=== PATIENT | male | born 1950 | race Caucasian/White ===

== ENCOUNTER 2018-12-15 05:45 | Inpatient (IN) ==
[2018-12-15] MEDS ORDERED: ASPIRIN ONE (05:53)
[2018-12-15] MEDS ORDERED: PULMICORT INH ONE (06:01)
[2018-12-15] MEDS ORDERED: SOLU-MEDROL IV ONE (06:01)
[2018-12-15] MEDS ORDERED: DUONEB (A & A) INH ONE ×2 (06:01→09:06)
--- NOTE | 2018-12-15 06:03 | PROVIDER DOCUMENTATION ---
HPI-Chest Pain - General Chief Complaint: Shortness of Breath Stated Complaint: cp Time Seen by Provider: 12/15/18 05:55 Source: patient Allergies/Adverse Reactions: Patient Allergies Allergy/AdvReac Type Severity Reaction Status Date / Time diclofenac [From Arthrotec] Allergy Unknown Verified 12/15/18 08:24 misoprostol [From Arthrotec] Allergy Unknown Verified 12/15/18 08:24 Penicillins Allergy ANAPHYLAXIS Verified 12/15/18 08:24 Home Medications: Home Medication List Medication Instructions Recorded Confirmed Last Taken Type Fenofibrate 160 mg PO DAILY 12/23/16 12/15/18 12/14/18 07:00 History Fluticasone/Vilanterol [Breo 1 each IH DAILY 12/23/16 12/15/18 12/14/18 07:00 History Ellipta 200-25 Mcg INH] Glimepiride 2 tab PO BID 12/23/16 12/15/18 12/14/18 20:00 History Hydrocodone/Acetaminophen [[place] 1 each PO Q8HR PRN 12/23/16 12/15/18 12/14/18 20:00 History 7.5-325 Tablet] Levothyroxine [Synthroid] 75 microgm PO DAILY 12/23/16 12/15/18 12/14/18 07:00 History Meloxicam 7.5 mg PO BID 12/23/16 12/15/18 12/14/18 20:00 History Metformin [Glucophage] 1 tab PO BID 12/23/16 12/15/18 12/14/18 20:00 History Metoprolol Succinate E.r. [Toprol 1 tab PO BID 12/23/16 12/15/18 12/14/18 20:00 History Xl] PRAVAstatin [Pravachol] 40 mg PO QHS 12/23/16 12/15/18 12/14/18 20:00 History Tamsulosin [Flomax] 0.4 mg PO QHS 12/23/16 12/15/18 12/14/18 20:00 History Tiotropium [place] [Spiriva 4 gm IH PRN PRN 12/23/16 12/15/18 12/14/18 20:00 History Respimat] Valsartan/Hydrochlorothiazide 1 each PO DAILY 12/23/16 12/15/18 12/14/18 08:00 History [Valsartan-Hctz 320-12.5 mg Tab] Flecainide Acetate 50 mg PO BID 12/15/18 12/15/18 12/14/18 20:00 History Verapamil HCl [Verapamil ER] 120 mg PO BID 12/15/18 12/15/18 12/14/18 20:00 History - History of Present Illness-CP Nature of Presenting Problem: Presents to the EC with complaints of chest pain and SOB. Patient states that he has been having SOB for the past 2-3 week. He has been using his labuterol ne bulizers and they used to work but over the last few days his SOB has gotten much worse to where he cannot walk from his bed to the bathroom without getting SOB. He states he quit smoking back in 1991 and does not know if he takes a water pill or has heart failure. He states this morning he started developing tightness in his chest and feeling like he couldnt breath worse so he called 911. He denies a cough or fevers or chills. Location: reports: central Chest Pain Radiation: reports: no radiation Quality of Pain: reports: tightness Severity in ED: moderate Onset/Duration: just prior to arrival Timing: still present Associated Symptoms: reports: shortness of breath Nitro Today/Relief: no nitro taken today Aspirin Treatment Today: no aspirin today, 325 mg x 1, provided by ED Review of Systems - Adult - REVIEW OF SYSTEMS - ADULT Constitutional: reports: no symptoms reported Eyes: reports: no symptoms reported Ears, Nose, Mouth & Throat: reports: no symptoms reported Cardiovascular: reports: see HPI, chest pain Respiratory: reports: see HPI, shortness of breath Gastrointestinal: reports: no symptoms reported Genitourinary: reports: no symptoms reported Musculoskeletal: reports: no symptoms reported Integumentary: reports: no symptoms reported Neurological: reports: no symptoms reported Psychiatric: reports: no symptoms reported Endocrine: reports: no symptoms reported Hematologic/Lymphatic: reports: no symptoms reported Allergic/Immunologic: reports: no symptoms reported All Other Systems: Reviewed and Negative Past History - Adult - PAST MEDICAL HISTORY-ADULT Review of Records: reports: Old Records Reviewed Cardiovascular: reports: A-Fib (possible), HTN Respiratory: reports: asthma Endocrine/Immune: reports: Diabetes, Lymphoma (non-hodgkins), thyroid disorder Other Conditions: reports: other cancer (skin) - PRIOR SURGERIES/PROCEDURES Surgical/Procedure History: reports: cholecystectomy, tonsillectomy, orthopedic (extremity), joint replacement - IMMUNIZATION STATUS Childhood Immunizations: See Nurse Assessment Flu Vaccine: See Nurse Assessment - FAMILY HISTORY Family History: reviewed, not pertinent Physical Exam-General - PHYSICAL EXAM-ADULT Initial Vital Signs Reviewed: Yes - CONSTITUTIONAL General Appearance: alert, mild distress (SOB and tachypneic) - EYES Eyes: PERRL/EOMI - HEAD, EARS, NOSE, MOUTH & THROAT HENMT: normocephalic/atraumatic - NECK Neck: supple, normal inspection - RESPIRATORY Respiratory: chest non-tender, decreased breath sounds (moderate diffusely), wheezing (moderate diffusely) - CARDIOVASCULAR Cardiovascular: normal peripheral pulses, regular rate, rhythm - GASTROINTESTINAL (ABDOMEN) Abdominal Exam: normal bowel sounds, non tender, soft - MUSCULOSKELETAL Back Exam: normal inspection, no CVA tenderness, no vertebral tenderness Extremity: normal range of motion, non-tender - SKIN Integumentary: normal color, warm/dry - NEUROLOGIC Neurologic: grossly normal - PSYCHIATRIC Psych/Mental Status: normal mood/affect, oriented x 3 - HEART Score HEART Score: History: Slightly Suspicious HEART Score: ECG: Significant ST-Deviation HEART Score: Age: > or = 65 Years HEART Score: Risk Factors for Atherosclerotic Disease: > or = 3 Risk Factors or History of Atherosclerotic Disease HEART Score: Troponin: < or = Normal Limit Total HEART Score:: 6 Progress - PLAN OF CARE/RESULTS Progress/Plan/Lab Results: Vital Signs - 8 hr 12/15/18 05:48 12/15/18 06:00 12/15/18 06:20 Temperature 97.9 F Pulse Rate 74 115 H 76 Respiratory Rate 20 25 H 22 Blood Pressure 158/111 149/108 O2 Sat by Pulse Oximetry 96 94 L Laboratory Results - last 24 hr 12/15/18 12/15/18 06:13 06:13 WBC 11.74 H RBC 5.57 Hgb 16.3 Hct 48.5 MCV 87.1 MCH 29.3 MCHC 33.6 RDW Std Deviation 15.1 H Plt Count 219 MPV 10.5 H Neut % (Auto) 74.4 Lymph % (Auto) 12.3 L [place] % (Auto) 9.3 Eos % (Auto) 3.7 Baso % (Auto) 0.3 Neut # (Auto) 8.75 H Lymph # (Auto) 1.44 [place] # (Auto) 1.09 H Eos # (Auto) 0.43 Baso # (Auto) 0.03 PT 13.8 INR 0.98 Orders Category Date Time Status CHEST-PORTABLE [RAD] Stat Exams 12/15/18 06:01 Completed CBC WITH ELECTRONIC DIFF [HEME] Stat Lab 12/15/18 06:13 Completed COMPREHENSIVE METABOLIC PANEL [CHEM] Stat Lab 12/15/18 06:13 Received PRO B-NATRIURETIC PEPTIDE Stat Lab 12/15/18 06:13 Received PROTIME WITH INR [COAG] Stat Lab 12/15/18 06:13 Completed TROPONIN T Stat Lab 12/15/18 06:13 Received Albuterol 2.5MG/Ipratrop 0.5MG [Duoneb (A & A)] Med 12/15/18 06:01 Discontinued 9 ml INH NOW ONE Aspirin Med 12/15/18 05:53 Discontinued 324 mg .ROUTE .STK-MED ONE Budesonide [Pulmicort] Med 12/15/18 06:01 Discontinued 0.5 mg INH NOW ONE Methylprednisolone Sod Succ [Solu-Medrol] Med 12/15/18 06:01 Discontinued 125 mg IV NOW ONE Aerosol Treatments Routine Oth 12/15/18 06:02 Completed Aerosol Treatments Stat Oth 12/15/18 06:02 Completed Result Diagrams: 12/15/18 06:13 12/15/18 06:13 - REASSESSMENT Reassessment #1 Time Reassessed: 08:30 (says feels better, however sats drop to 88% just in act of sitting up. Chest tightness has resolved. Lungas clear with ascultation) Status: improving - EKG 1 Time of EKG reading by physician:: 05:56 EKG Read and Signed by:: Jaymie Marroquin EKG Interpretation (*Must complete 3 of following elements*): Abnormal Rate: 74 Rhythm: NSR [place]: normal QRS: other (Prolonged QTc) ST Wave: non-specific ST changes (ST inversions diffusely) Prior EKG Comparison: changes noted (from 2017) - XRAY 1 XRAY Study: Chest (EXAM: CHEST-PORTABLE HISTORY: COPD TECHNIQUE: Chest single view COMPARISON: 03/10/2017 FINDINGS: The lungs are well expanded. The heart is borderline mildly prominent. The vessels are not distended. There a re no infiltrates. No effusion identified. IMPRESSION: Negative exam. Electronically signed by Cole Villareal 12/15/2018 6:37 AM) Impression: Normal - CONSULTS/PCP/HOSPITALIST Notification #1 *Consult/PCP/Hospitalist*: Robert Time Discussed: 08:35 Consult Disposition: Will see in ED, Admit - CHANGE OF SHIFT REPORT (ED Provider) 1 Report Given and Care Transferred to:: Dr Rubin Time of Transfer: 07:00 Items Pending: Labs, XRAY Results Departure - Departure Date of Disposition Decision: 12/15/18 Time of Disposition Decision: 08:37 DIAGNOSIS: COPD exacerbation, ST segment changes on electrocardiogram, Hypoxia Chest pain Qualifiers: Chest pain type: unspecified Qualified Code(s): R07.9 - Chest pain, unspecified Disposition: ADMITTED INPATIENT 09 Certified Medical Emergency: Emergent Condition: Stable Referrals and Follow-Ups: Jodie Carrion MD [Primary Care Provider] - - Critical Care Note This patient required my direct & personal management of CC.: Yes Total Time (mins): 75 Critical Care Statement: This patient required my direct personal management to treat or rule out processes, the absence of which, could potentiallly result in sudden, clinically significant life or limb threatening deterioration. Attestation - Physician/ ALBERTO Attestation Patient care was provided by Advanced Practice Provider:: No The physician spent face to face time with patient:: Yes Advanced Practice Provider documentation review:: Supervising physician onsite and consulted in the evaluation and care of this patient. The physician did have a face to face encounter with the patient.
[2018-12-15 06:36] LABS: BASO# 0.03 X1000 (0.0-0.2); BASO% 0.3 % (0.0-0.8); EOS# 0.43 X1000 (0.0-0.7); EOS% 3.7 % (0.0-10.0); HEMATOCRIT 48.5 % (42.0-52.0); HEMOGLOBIN 16.3 g/dL (14.0-18.0); LYMPH# 1.44 X1000 (1.2-3.4); LYMPH% 12.3 % (20.5-51.1); MCH 29.3 PG (27-31); MCHC 33.6 g/dL (33-37); MCV 87.1 FL (81-99); MONO# 1.09 X1000 (0.11-0.59); MONO% 9.3 % (1.7-9.3); MPV 10.5 FL (7.4-10.4); NEUT# 8.75 X1000 (1.4-6.5); NEUT% 74.4 % (42.2-75.2); PLT 219 X1000 (130-400); RBC 5.57 XMIL (4.7-6.1); RDW 15.1 % (11.5-14.5); WBC 11.74 X1000 (4.8-10.8)
--- NOTE | 2018-12-15 06:39 | Diag Imaging Result Doc PS360 ---
EXAM: CHEST-PORTABLE HISTORY: COPD TECHNIQUE: Chest single view COMPARISON: 03/10/2017 FINDINGS: The lungs are well expanded. The heart is borderline mildly prominent. The vessels are not distended. There are no infiltrates. No effusion identified. IMPRESSION: Negative exam. Electronically signed by Cole Villareal 12/15/2018 6:37 AM
[2018-12-15 06:46] LABS: INR 0.98; PROTIME 13.8 Seconds (11.0-16.0)
[2018-12-15] MEDS ORDERED: NITROGLYCERIN TOP ONE (06:50)
[2018-12-15 06:57] LABS: AGAP 12; ALB/GLOB RATIO 1.5; ALBUMIN 2.5 g/dL (3.5-5.0); ALKALINE PHOSPHATASE 26 U/L (32-122); BUN 13 mg/dL (8-22); CHLORIDE 117 mmol/L (98-107); COSMO 290; CREATININE 0.5 mg/dL (0.7-1.2); ESTIMATED GFR > 60; GLUCOSE 147 mg/dL (70-104); GOT 10 U/L (10-34); GPT 10 U/L (10-44); SODIUM 144 mmol/L (136-145); TCO2 15 mmol/L (25-35); TOTAL BILIRUBIN 0.35 mg/dL (0.20-1.00); TOTAL PROTEIN 4.2 g/dL (6.3-8.3)
[2018-12-15] MEDS ORDERED: ASPIRIN PO ONE (07:01)
[2018-12-15 07:30] LABS: CALCIUM 9.5 mg/dL (8.8-10.2); POTASSIUM 4.1 mmol/L (3.5-5.1)
[2018-12-15] MEDS ORDERED: LEVAQUIN 500 MG/D5W 500 MG/100 ML IVPB IV SCH (08:45)
[2018-12-15 08:58] LABS: ALLEN TEST YES; BE -2.4 mmoll (-3.0-3.0); BLOOD TYPE ARTERIAL; HCO3-(ACT) 22.8 mmoll (20.0-26.0); METHB 0.7 % (0.0-1.5); MODALITY CANNULA; O2(CT) 20.2 mL/dL (15.0-23.0); O2HB 90.5 % (95.0-99.0); PCO2(98.6) 35 mmHg (35-45); PO2(98.6) 58 mmHg (60-100); SAMPLE BLOOD; SAO2 92.2 % (95.0-100.0); THB 15.9 g/dL (11.5-17.4)
[2018-12-15] MEDS ORDERED: ALBUTEROL NEB INH ONE (09:06)
--- NOTE | 2018-12-15 09:09 | EKG Report ---
Test Performed on : 12/15/2018 05:54:02 AM Test Reason : ED. NO EKG ORDER FOR MUSE Blood Pressure : / mmHG Vent. Rate : 074 BPM Atrial Rate : 074 BPM P-R Int : 184 ms QRS Dur : 108 ms QT Int : 490 ms P-R-T Axes : 066 136 -05 degrees QTc Int : 543 ms Normal sinus rhythm. Right axis deviation T wave abnormality, consider inferior ischemia T wave abnormality, consider anterolateral ischemia Prolonged QT Abnormal ECG When compared with ECG of 10-MAR-2017 08:50, QRS axis shifted right T wave inversion now evident in Inferior leads T wave inversion now evident in Anterolateral leads QT has lengthened Unconfirmed Result
[2018-12-15 09:44] LABS: HEMOGLOBIN A1C 7.2 % (4.8-6.0)
[2018-12-15 09:54] LABS: FREE T4 1.13 ng/dL (0.93-1.70); TSH 2.44 uIUmL (0.27-4.20)
[2018-12-15] MEDS ORDERED: LASIX IV ONE (10:03)
[2018-12-15] MEDS ORDERED: DUONEB (A & A) INH PRN (10:10)
[2018-12-15] MEDS ORDERED: ZOFRAN IV PRN (10:10)
[2018-12-15] MEDS ORDERED: TYLENOL PO PRN (10:10)
[2018-12-15 11:08] LABS: URINE SOURCE CLEAN CATCH
--- NOTE | 2018-12-15 11:14 | EKG Report ---
Test Performed on : 12/15/2018 10:55:43 AM Test Reason : Follow up ST T changes in Ant Lat Inf leads Blood Pressure : / mmHG Vent. Rate : 098 BPM Atrial Rate : 098 BPM P-R Int : 188 ms QRS Dur : 106 ms QT Int : 422 ms P-R-T Axes : 060 148 -01 degrees QTc Int : 538 ms Normal sinus rhythm. Left posterior fascicular block Inferior infarct , age undetermined T wave abnormality, consider anterior ischemia Prolonged QT Abnormal ECG When compared with ECG of 15-DEC-2018 05:54, (Unconfirmed) No significant change was found Confirmed by Sachin Holman MD ([id number]) on 12/15/2018 9:33:23 PM
[2018-12-15] MEDS: XOPENEX NEB INH SCH ×4 (11:16→23:42)
[2018-12-15] MEDS: ATROVENT NEB INH SCH ×4 (11:16→23:42)
[2018-12-15 11:17] LABS: BILIRUBIN URINE NEGATIVE (NEGATIVE); BLOOD URINE NEGATIVE (NEGATIVE); COLOR YELLOW; GLUCOSE URINE NEGATIVE (NEGATIVE); KETONE URINE NEGATIVE (NEGATIVE); LEUKOCYTES URINE MODERATE (NEGATIVE); NITRITE URINE NEGATIVE (NEGATIVE); PROTEIN URINE NEGATIVE (NEGATIVE); SP GRAVITY URINE 1.009; TURBIDITY URINE CLEAR (CLEAR); UROBILINOGEN URINE NORMAL (NORMAL)
[2018-12-15 11:19] LABS: UR EPITHELIAL CELLS <10 /HPF (<10); URINE BACTERIA 4+ /HPF; URINE RBC <10 /HPF (<10)
--- NOTE | 2018-12-15 11:33 | HISTORY AND PHYSICAL ---
ADDENDUM: Addendum to history and physical dictated by the nurse practitioner. I agree with most components of history, physical, assessment, and plan. In brief, Mr. Palacios is a 68-year-old man with past medical history of paroxysmal atrial fibrillation, asthma, COPD syndrome, essential hypertension, noninsulin- dependent diabetes mellitus, diastolic congestive heart failure with normal coronary angiography in 06/2016, non- Hodgkin's lymphoma, who comes in with chief complaint of shortness of breath of about 2 to 3 weeks duration, associated with sharp chest pain. The patient's shortness of breath had started about 3 weeks ago, and his wheezing had increased from his baseline wheezing, and he had contacted his transit coach operator, who had prescribed him Z-Ehsan and Medrol Dosepak as per the history, which he completed yesterday. However, his shortness of breath did not improve, and yesterday he started also experiencing chest pain, and so he decided to come to the hospital. In the emergency room, he was found to be tachycardic, hypertensive, and hypoxic. He was given nebulizer, steroids, and hospitalist team was consulted for further management. At the time of my evaluation, the patient denies any more chest pain. He was already given 325 mg of aspirin. He is still feeling wheezy and short of breath. I discussed with him and his at bedside, his exam findings, and answered all of his questions. The patient denies any cough since the last 2 days, though previously he did have cough with [id number] expectoration. He denies any fevers or chills. PHYSICAL EXAMINATION: VITAL SIGNS: Temperature 97.9 degrees, pulse 76, respiratory rate 25, blood pressure 150/108, saturating 95% on Ventimask. HEENT: He appears plethoric face. Oral cavity is moist. LUNGS: Air entry bilaterally equal. He does have inspiratory crackles in bilateral inframammary region with end-expiratory wheezes. CARDIOVASCULAR: S1, S2 normal. Regular rhythm. No murmur, rub, or gallop. ABDOMEN: Obese, soft, nontender. EXTREMITIES: Mild bilateral lower extremity edema. NEUROLOGIC: He is alert and oriented x3. He does have right hand deformity since , with intact sensation. LABORATORY DATA: Suggestive of mild leukocytosis of 11,000, with eosinophil count of 3.7. He does have normal PT/INR. His ABG is suggestive of hypoxia of 58, hyperchloremia, and low bicarbonate. He does have elevated proBNP and negative first troponin. MICROBIOLOGY: No data. IMAGING: On review of chest x-ray, he does have pulmonary vascular congestion and some cephalization. EKG suggestive of normal sinus rhythm, anterolateral inferior T- wave inversions, and prolonged QTc. ASSESSMENT: 1. Acute hypoxic respiratory failure due to asthma, acute chronic obstructive pulmonary disease syndrome exacerbation. 2. Anterolateral inferior T-wave inversion with atypical chest discomfort and negative coronary angiography in 12/2016, likely in the setting of endocardial ischemia in the setting of hypoxic respiratory failure. 3. Acute chronic obstructive pulmonary disease, asthma exacerbation. 4. Mild acute on chronic diastolic congestive heart failure exacerbation. 5. Paroxysmal atrial fibrillation. 6. Noninsulin-dependent diabetes mellitus. PLAN: 1. Continue oxygenation to maintain saturation more than 94%, albuterol/ipratropium nebulization, intravenous antibiotics, and intravenous steroids. 2. Follow up with EKG and troponins, and follow up BMP. DISPOSITION: I would continue to monitor the patient in [facility]. Plan of care was discussed with the patient and his at bedside. All of their questions have been answered. cc: Desean Jones MD MTDD
[2018-12-15] MEDS: HUMULIN R SUBQ SCH ×3 (11:40→21:49)
--- NOTE | 2018-12-15 12:01 | HISTORY AND PHYSICAL ---
PRIMARY CARE PROVIDER: Dr. Jodie Carrion. INFECTIOUS DISEASE DOCTOR: Dr. Yanick Degroot out of [place]. PRIMARY BUILDING SERVICES COORDINATOR: Dr. Yudith Ruiz out of [facility]. UROLOGIST: Dr. Duggan. CHIEF COMPLAINT: Shortness of breath. HISTORY OF PRESENT ILLNESS: Mr. Ariel Palacios is a 68-year-old male with a medical history of COPD, chronic respiratory failure, paroxysmal atrial fibrillation, diastolic dysfunction, who is now here with complaints of extreme shortness of breath. He states that for at least 3 weeks he has had progressively worsening shortness of breath. He was in touch with Dr. Degroot who prescribed him azithromycin and a Medrol Dosepak which was all completed yesterday. By last night, he was unable to sleep. The shortness of breath was severe to the point of causing him chest discomfort. Despite taking nebulizers, it would not improve and then came to the emergency department here at [facility]. He has been having spells of dizziness and lightheadedness over the last 3 weeks. He has had yellow to white productive thick phlegm and chills. He denies any fever. Denies any other chest pains and is chest pain- free right now. Cardiac enzymes are negative. He has had a clear left heart catheterization in 2017. What is elevated is his proBNP at 4933, which is significantly elevated since 2017 and, in 2017, it was a normal number. He is actively wheezing and short of breath at this time despite having steroids and nebulizers, so we will get him admitted. We will start him on Lasix, steroids, antibiotic, nebulizers, oxygen therapy and monitor him in the [facility]. PAST MEDICAL HISTORY: 1. COPD. 2. Diabetes mellitus type 2 with a hemoglobin A1c of 7.2. He is on oral diabetic medications only. 3. Obstructive sleep apnea which is resolved since he had sinus surgery. No CPAP. 4. Overactive bladder with BPH. 5. Osteoarthritis. 6. Right hand defect. 7. Paroxysmal atrial fibrillation. It happens every 3 to 4 months; the last time was about 2 weeks ago and it never lasts long enough to go to the hospital or see the doctor. He is followed by Dr. Ruiz in [place] for that. 8. Diastolic dysfunction per echocardiogram in 2017 with an ejection fraction of 66% and an elevated pulmonic pressure of 37. The diastolic dysfunction was actually found on the left heart catheterization that was performed in 2017, and it was suspected due to elevated left ventricular end-diastolic pressure. 9. Non-Hodgkin lymphoma on his back that is in remission. 10. History of basal cell skin cancer. 11. Hyperlipidemia. SURGICAL HISTORY: 1. Right inguinal hernia repair. 2. Cholecystectomy. 3. Carpal tunnel release bilaterally. 4. Right knee arthroscopy. 5. Reconstruction of the right hand. 6. Tonsillectomy with polyps and sinus surgery. 7. Right shoulder replacement. 8. Bilateral cataracts. 9. Umbilical hernia repair. 10. Left shoulder skin cancer removed. SOCIAL HISTORY: Quit smoking in 1989, but he had started smoking at the age of 13 and was a 1 pack per day smoker. Very minimal alcohol use. He says 1 case of beer can last him for 3 months. He said the last time he even bought alcohol was about 6 months ago. Denies any illicit drug use. Lives at home with his . FAMILY HISTORY: Mother had diabetes and breast cancer. Had a grandmother and a great grandmother, who also had breast cancer. Had an uncle who had colon cancer. On the father's side, his father started having cardiac complications in his 50s and in uncles and father they all had alcoholism, and 1 uncle had congestive heart failure. ALLERGIES: Penicillin causes anaphylaxis and then Arthrotec causes dysrhythmia. Diclofenac and Misoprostol. HOME MEDICATIONS: 1. Oxybutynin. 2. Mag-Ox. 3. Toprol extended release 200 mg p.o. daily. 4. Flomax 0.4 mg p.o. nightly. 5. Pravachol 40 mg p.o. nightly. 6. Marina once every 8 hours p.r.n. 7. Breo Ellipta 200/25, inhaled daily. 8. Fenofibrate 160 mg p.o. daily. 9. Flecainide acetate 50 mg p.o. twice daily. 10. Glimepiride 2 tabs p.o. twice daily. 11. Metformin 500 mg p.o. twice daily. 12. Mobic 7.5 mg p.o. twice daily. 13. Spiriva 4 g inhaled as needed. 14. Synthroid is listed, but I believe he is not on Synthroid. 15. Valsartan/hydrochlorothiazide once daily. 16. Verapamil extended release 120 mg p.o. twice daily. REVIEW OF SYSTEMS: Fourteen point review of systems are complete or negative, except for those mentioned in above HPI. PHYSICAL EXAMINATION: VITAL SIGNS: Temperature 97.9 degrees, heart rate 76, respiratory rate 25, blood pressure 149/108, O2 saturation was 92% on 4 L nasal cannula. He is 5 feet 10 inches tall, 260 pounds, BMI of 37.3. GENERAL: Mr Ariel Palacios is a 68-year-old male. He is in no acute distress and is able to answer questions appropriately. He is short of breath when he excessively speaks. HEENT: Atraumatic, normocephalic. Pupils equal, round, reactive to light. Extraocular movements intact. Mucous membranes are moist. NECK: Trachea midline. CARDIOVASCULAR: S1, S2. Regular rate and rhythm. No rubs, gallops, murmurs. No lower extremity edema. +2 dorsalis and radial pulses. Difficult to assess for JVD. Negative for carotid bruits. PULMONARY: Expiratory wheezes noted throughout. Mild accessory muscle use. Mild work of breathing. Tolerating 4 L nasal cannula. GI: Soft, nontender, nondistended. Positive bowel sounds x4. EXTREMITIES: Moves all extremities equally. Full range of motion. NEUROLOGIC: A and O x3. Follows commands. Sensory is intact. SKIN: Warm, dry, intact. LABORATORY DATA: White blood cells 11,000, hemoglobin 16, hematocrit 48, platelet count 219. INR 0.98. ABGs: A pH 7.40, pCO2 35, PO2 58, bicarbonate 22, base excess -2, saturation 90%. Lactate 2.1. This was on 2 L nasal cannula. Sodium 144, potassium 4.1, BUN 13, creatinine 0.5, glucose 147. Hemoglobin A1c is 7.2. Calcium 9.5, bilirubin 0.35, AST 10, ALT 10. Troponin less than 0.01. ProBNP 4933. Albumin 2.5, triglycerides 144, total cholesterol 107, HDL 33, LDL 59. TSH 2.44, free T4 is 1.13. IMAGING: Chest x-ray negative exam. EKG normal sinus rhythm, rate 74, QTc 543. ASSESSMENT/PLAN: 1. Chronic obstructive pulmonary disease exacerbation with acute hypoxemic respiratory failure. We will do antibiotic steroids, nebulizers and oxygen therapy. He has complaints of having dizzy lightheadedness spells, so he may need to be evaluated for home oxygen upon discharge. The antibiotic was originally chosen as Levaquin, but then it was noted that he had a QTc of 543. He has an allergy to penicillin as it causes anaphylaxis. So, will look at the antibiotics and decide which one to use for him. 2. Leukocytosis. This could be reactive to the steroid dose pack that he received prior to admission. There were no other signs or symptoms of infection, although he has complained of some chills and yellow phlegm. We will get a sputum culture. 3. Acute congestive heart failure with history of diastolic dysfunction. We will get a recent echocardiogram. His proBNP is elevated over 4000; it has never been abnormal. So we will also start him on Lasix. He has got audible wheezing. Will do 40 of Lasix twice a day. Repeat a chest x-ray tomorrow and a proBNP in the morning. Could be a component of pulmonary hypertension as his last echocardiogram showed a systolic on a pulmonary artery being 37 mmHg. 4. History of paroxysmal atrial fibrillation. Primarily stays in sinus rhythm, but about every 3 to 4 months, has short runs of atrial fibrillation with rapid ventricular response. He feels the palpitations. Will continue his Toprol extended release 200 mg daily. We can add 50 mg oral twice daily, and verapamil extended release 120 mg oral twice daily. 5. Hypertension. Continue his valsartan hydrochlorothiazide and Toprol. 6. Hyperlipidemia. Will continue his Pravachol and his fenofibrate. 7. Diabetes mellitus type 2. Oral diabetic medications only. Will continue the glimepiride, will hold the metformin. We will do sliding scale insulin, diabetic diet, pattern blood glucoses. 8. Arthritis. Continue Mobic and as-needed Marina. 9. He denies history of hypothyroidism. There are no obvious recent prescriptions for Synthroid, but Synthroid is listed under his home medications. I believe this is incorrect. His thyroid stimulating hormone and T4 is normal, so we are going to re-evaluate that. 10. Overactive bladder with questionable benign prostatic benign prostatic hyperplasia. He is followed by Dr. Duggan. He is on oxybutynin, which is going to be held for now. He is on Flomax. Will continue that. 11. History of obstructive sleep apnea, but apparently that is resolved after he had sinus surgeries and polyps removed. Dictated by GARRY Branch for Desean Jones MD cc: GARRY Branch MD Emily M. McClure, MD William McCrory, MD Shi Chi Cheng, MD I agree with most components of history, physical, assessment and plan. A separate addendum has been dictated. ELSA
[2018-12-15] MEDS: DOXYCYCLINE 100 MG in NS 250 ML IV SCH ×2 (12:25→23:26)
[2018-12-15] MEDS: SOLU-MEDROL IV SCH ×3 (13:25→21:57)
[2018-12-15] MEDS: PULMICORT INH SCH (19:50)
[2018-12-15] MEDS: MOBIC PO SCH (20:45)
[2018-12-15] MEDS: TAMBOCOR PO SCH (20:45)
[2018-12-15] MEDS: AMARYL PO SCH (20:45)
[2018-12-15] MEDS: FLOMAX PO SCH (20:45)
[2018-12-15] MEDS: PRAVACHOL PO SCH (20:45)
[2018-12-15] MEDS: ISOPTIN SR PO SCH (20:46)
[2018-12-15] MEDS: LASIX IV SCH (20:46)
--- NOTE | 2018-12-15 23:28 | ECHO REPORT ---
ORDER DATE: 12/15/2018 MEASUREMENTS: Septal thickness 1.1, left ventricular internal diameter in diastole 4.1, posterior wall thickness 1.1, left ventricular internal diameter in systole 2.6, aortic root 2.8, left atrium 3.8. SUMMARY: 1. Fair quality study. 2. Very mild sclerosis of trileaflet aortic valve demonstrated, with normal aortic valve opening evident. Peak gradient across the aortic valve is approximately 16 mmHg. Mitral, tricuspid and pulmonic valves are without evidence of structural abnormality. There is mild tricuspid regurgitation and mild pulmonic insufficiency. The estimated systolic PA pressure by Doppler is 85 mmHg, suggesting severe pulmonary hypertension. The aortic root is grossly normal in size. 3. Normal left ventricular dimension is suggested. Estimated left ventricular ejection fraction appears to be at least 65%. There is septal flattening demonstrated consistent with right ventricular pressure overload. No other wall motion abnormalities are evident. Doppler suggests grade 1 left ventricular diastolic dysfunction. The left atrium is normal in size. Right atrium is mildly enlarged. The right ventricle is mildly to moderately enlarged. Right ventricular systolic function appears to be preserved. 4. No pericardial effusion. 5. Inferior vena cava not well demonstrated. cc: MD Bing Torres CRNP
[2018-12-16] MEDS: XOPENEX NEB INH SCH ×6 (03:46→23:38)
[2018-12-16] MEDS: ATROVENT NEB INH SCH ×6 (03:46→23:38)
[2018-12-16 04:11] LABS: ALLEN TEST YES; BE -0.6 mmoll (-3.0-3.0); BLOOD TYPE ARTERIAL; HCO3-(ACT) 24.4 mmoll (20.0-26.0); O2(CT) 19.9 mL/dL (15.0-23.0); O2HB 95.4 % (95.0-99.0); PCO2(98.6) 43 mmHg (35-45); PO2(98.6) 72 mmHg (60-100); SAMPLE BLOOD; SAO2 97.8 % (95.0-100.0); THB 14.8 g/dL (11.5-17.4); pH(98.6) 7.37 (7.35-7.45)
[2018-12-16 04:12] LABS: MODALITY VENTIMASK
[2018-12-16] MEDS: SOLU-MEDROL IV SCH ×3 (06:15→21:25)
[2018-12-16] MEDS: HUMULIN R SUBQ SCH ×5 (06:15→23:58)
[2018-12-16 06:41] LABS: INR 1.02; PROTIME 14.2 Seconds (11.0-16.0)
[2018-12-16 06:42] LABS: PTT 28.1 Seconds (22.3-41.8)
[2018-12-16] MEDS ORDERED: SYNTHROID PO SCH (07:00)
[2018-12-16] MEDS: PULMICORT INH SCH ×2 (07:50→19:52)
[2018-12-16 08:06] LABS: AGAP 15; ALB/GLOB RATIO 1.3; ALBUMIN 4.1 g/dL (3.5-5.0); ALKALINE PHOSPHATASE 45 U/L (32-122); BUN 28 mg/dL (8-22); CHLORIDE 100 mmol/L (98-107); COSMO 293; CREATININE 1.1 mg/dL (0.7-1.2); ESTIMATED GFR > 60; GLUCOSE 276 mg/dL (70-104); GOT 12 U/L (10-34); GPT 15 U/L (10-44); MAGNESIUM 1.8 mg/dL (1.5-2.7); POTASSIUM 3.9 mmol/L (3.5-5.1); SODIUM 139 mmol/L (136-145); TCO2 24 mmol/L (25-35); TOTAL BILIRUBIN 0.62 mg/dL (0.20-1.00); TOTAL PROTEIN 7.3 g/dL (6.3-8.3)
--- NOTE | 2018-12-16 08:06 | EKG Report ---
Test Performed on : 12/16/2018 06:21:32 AM Test Reason : chest pain Blood Pressure : / mmHG Vent. Rate : 087 BPM Atrial Rate : 087 BPM P-R Int : 176 ms QRS Dur : 110 ms QT Int : 448 ms P-R-T Axes : 076 138 038 degrees QTc Int : 539 ms Normal sinus rhythm. Left posterior fascicular block ST & T wave abnormality, consider inferior ischemia ST & T wave abnormality, consider anterolateral ischemia Prolonged QT Abnormal ECG When compared with ECG of 15-DEC-2018 10:55, Inverted T waves have replaced nonspecific T wave abnormality in Lateral leads Confirmed by Sachin Holman MD ([id number]) on 12/16/2018 6:02:42 PM
[2018-12-16 08:10] LABS: HEMATOCRIT 47.8 % (42.0-52.0); IMM GRAN# 0.04 X1000 (0.0-0.04); IMM GRAN% 0.3 % (0.0-0.5); LYMPH# 0.58 X1000 (1.2-3.4); LYMPH% 4.4 % (20.5-51.1); MCH 28.8 PG (27-31); MCHC 33.5 g/dL (33-37); MONO# 0.92 X1000 (0.11-0.59); MONO% 6.9 % (1.7-9.3); NEUT# 11.79 X1000 (1.4-6.5); NEUT% 88.4 % (42.2-75.2); PLT 219 X1000 (130-400); RBC 5.56 XMIL (4.7-6.1); RDW 14.6 % (11.5-14.5); WBC 13.33 X1000 (4.8-10.8)
[2018-12-16 08:12] LABS: LYMPHS 4 % (21-51); MONO 7 % (1-9); SEGS 89 % (42-75)
[2018-12-16] MEDS ORDERED: LEVAQUIN 750 MG/D5W 750 MG/150 ML IVPB IV SCH (09:00)
[2018-12-16] MEDS: LASIX IV SCH (09:56)
[2018-12-16] MEDS: MOBIC PO SCH ×2 (09:56→21:00)
[2018-12-16] MEDS: TOPROL XL PO SCH (09:56)
[2018-12-16] MEDS: DIOVAN PO SCH (09:57)
[2018-12-16] MEDS: ISOPTIN SR PO SCH ×2 (09:57→20:59)
[2018-12-16] MEDS: TAMBOCOR PO SCH ×2 (09:57→21:00)
[2018-12-16] MEDS: LOVENOX SUBQ SCH (09:57)
[2018-12-16] MEDS: AMARYL PO SCH ×2 (09:58→20:59)
[2018-12-16] MEDS: LOFIBRA PO SCH (09:58)
--- NOTE | 2018-12-16 10:36 | Diag Imaging Result Doc PS360 ---
EXAM: CHEST-2 VIEWS INDICATION: sob TECHNIQUE: 2 views COMPARISON: 12/15/2018 FINDINGS: The lungs are grossly clear. There is no discrete pleural fluid collection or pneumothorax. The right hilum is mildly prominent. However, this is stable. This appears to represent prominent vasculature as there is no corresponding lesion on a prior CT from 2017. Cardiac silhouette is unremarkable. IMPRESSION: No evidence of acute pathology by plain radiograph. Electronically signed by Kade Villanueva 12/16/2018 10:34 AM
--- NOTE | 2018-12-16 10:46 | PROGRESS NOTE ---
DATE: 12/16/2018 INTERVAL HISTORY: Overnight, he was put on BiPAP, but he had a panic attack on BiPAP, and he started pulling out his IV lines and the BiPAP mask, after which he was put on Ventimask, and he did not have any such events after that. In the morning time, he is feeling the same as yesterday. We discussed about exam findings, that he does not have crackles, and I explained to him about need for BiPAP. I answered all of his questions. is also at bedside. OBJECTIVE: Vital Signs: He has been afebrile with temperature of 97.3 degrees, pulse 94, respiratory rate 17, blood pressure 120/65, saturating 94% to 96% on Venturi mask. General: Morbidly obese, not in any acute distress. HEENT: His face has generalized erythema. Oral cavity is moist. Lungs: He has air entry bilaterally equal. No rhonchi or crackles. He does have significant wheezes to bilateral lung knight. Cardiovascular: S1, S2 normal. Regular. No murmur, rub, or gallop. Abdomen: Obese, soft, nontender. Extremities: No lower extremity edema. Neurologic: He is alert and oriented x3. He has a right hand deformity since with intact sensation. Input and output suggests -900 mL so far. IMAGING AND LABORATORY DATA: Labs suggestive of persistent leukocytosis with 0% eosinophil count, suggestive of steroid effect, normal hemoglobin, normal platelet count. PO2 of 72 on Ventimask. He does have elevated BUN and creatinine because of Lasix use. He does have hyperglycemia as well. His EKG was of poor quality. His chest x-ray this morning is still pending. However, the images are available and it looks like his vascular congestion has resolved. There is no new consolidation. ASSESSMENT AND PLAN: 1. Acute hypoxic respiratory failure due to asthma, acute chronic obstructive pulmonary disease exacerbation. Continue levalbuterol/ipratropium nebulization, intravenous doxycycline, and intravenous steroids. He did have anaphylaxis to penicillin before, and his QTc has been prolonged, so I would avoid beta-lactam and levofloxacin. I explained to him about need for bilevel positive airway pressure, and will try to have him wear bilevel positive airway pressure mask as tolerated. 2. Atypical chest pain, likely because of severe hypoxia, now resolved. His electrocardiogram does have anterolateral and inferior T-wave inversions, but troponins have been negative. He had negative coronary angiography in 12/2016. This was likely in the setting of endocardial ischemia. He should have outpatient Cardiology evaluation with whom he has scheduled an appointment later this month. 3. Mild exacerbation of acute on chronic diastolic congestive heart failure, status post intravenous Lasix. Clinical examination has improved. The proBNP remains elevated. I will hold Lasix now. 4. History of paroxysmal atrial fibrillation. Continue his home metoprolol, verapamil, and flecainide. He is not listed to be taking any anticoagulation as per the history given to me by him. 5. Others: Continue pravastatin and fenofibrate for hyperlipidemia; tamsulosin for benign prostatic hypertrophy; glimepiride and insulin for history of diabetes mellitus type 2; valsartan for essential hypertension. 6. Disposition. The patient remains in [facility] for persistent wheezing and hypoxic respiratory failure. Plan of care discussed with him. All of his questions have been answered. I will add deep venous thrombosis prophylaxis. cc: Desean Jones MD
[2018-12-16] MEDS: DOXYCYCLINE 100 MG in NS 250 ML IV SCH ×2 (11:47→23:58)
[2018-12-16] MEDS: FLOMAX PO SCH (20:59)
[2018-12-16] MEDS: PRAVACHOL PO SCH (20:59)
[2018-12-17] MEDS ORDERED: HUMULIN R SUBQ ONE (00:18)
[2018-12-17] MEDS: ATROVENT NEB INH SCH ×6 (03:32→23:30)
[2018-12-17] MEDS: XOPENEX NEB INH SCH ×6 (03:32→23:30)
[2018-12-17] MEDS: SOLU-MEDROL IV SCH ×3 (06:09→21:07)
[2018-12-17] MEDS: HUMULIN R SUBQ SCH ×5 (06:09→23:50)
[2018-12-17 06:21] LABS: AGAP 13; BUN 39 mg/dL (8-22); CALCIUM 9.2 mg/dL (8.8-10.2); CHLORIDE 103 mmol/L (98-107); COSMO 298; CREATININE 1.1 mg/dL (0.7-1.2); ESTIMATED GFR > 60; GLUCOSE 261 mg/dL (70-104); POTASSIUM 4.5 mmol/L (3.5-5.1); SODIUM 140 mmol/L (136-145); TCO2 24 mmol/L (25-35)
[2018-12-17] MEDS: PULMICORT INH SCH ×2 (07:44→19:31)
[2018-12-17] MEDS: MOBIC PO SCH ×2 (08:22→21:07)
[2018-12-17] MEDS: TAMBOCOR PO SCH ×2 (08:22→21:07)
[2018-12-17] MEDS: TOPROL XL PO SCH (08:22)
[2018-12-17] MEDS: AMARYL PO SCH ×2 (08:22→21:07)
[2018-12-17] MEDS: DIOVAN PO SCH (08:22)
[2018-12-17] MEDS: LOFIBRA PO SCH (08:23)
[2018-12-17] MEDS: LOVENOX SUBQ SCH (08:23)
[2018-12-17] MEDS: ISOPTIN SR PO SCH ×2 (08:23→21:06)
[2018-12-17] MEDS ORDERED: LANTUS INSULIN SUBQ SCH (09:00)
--- NOTE | 2018-12-17 09:32 | PROGRESS NOTE ---
DATE: 12/17/2018 SUBJECTIVE: As per the patient, he is feeling better. He is still using a Ventimask. He is still short of breath. 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 He believes also he has sleep apnea, and he had a sleep study a long time ago. Even though he has a history of paroxysmal atrial fibrillation, I do not have any anticoagulation listed, and he showed me the list of his medications and he is not on any at home, so I will start this patient on blood thinner. He does not have a history of GI bleed, brain bleed, or recent surgery. OBJECTIVE: Vital Signs: Temperature 98, pulse 64, respiratory rate 18, blood pressure 114/95, oxygen saturation 99 on a Ventimask. HEENT: Head normocephalic. No trauma. PERRLA. Some erythema on his face. Neck: Supple. I cannot see JVD because of his neck size. Central trachea. Chest: Coarse breath sounds bilaterally. He does have bilateral wheezing, end- expiratory wheezing. Decreased breath sounds globally with prolonged expiratory phase. Cardiovascular: RRR. Abdomen: Soft, obese, slightly distended, positive bowel sounds. Extremities: No edema, no clubbing, no cyanosis. Neurological: The patient is alert and oriented x3. No focal deficit. He has a right hand deformity since . LABORATORY: Sodium 140, potassium 4.5, chloride 103, bicarbonate 24, BUN 39, creatinine 1.1, glucose 261, calcium 9.2. ASSESSMENT AND PLAN: 1. Acute hypoxemic respiratory failure due to chronic obstructive pulmonary disease exacerbation. Continue with breathing treatment. He has been placed on antibiotics, steroids as well, oxygen supplementation. Will continue with same management. He is feeling a little bit better. 2. Atypical chest pain. No chest pain at this moment. Resolved. 3. Chronic obstructive pulmonary disease exacerbation as per number 1. 4. History of paroxysmal atrial fibrillation. I will put this patient on Lovenox twice a day. He is not on any anticoagulation at home. 5. Dyslipidemia. Continue with the same management. 6. Type 2 diabetes. I will add Lantus to his medications. I will monitor this patient closely. He is on steroids as well. His hemoglobin A1c is 7.2. 7. Hypertension. Stable. Continue with same management. 8. Likely sleep apnea. He has not been tolerating the BiPAP much during the night. We will continue with oxygen supplementation. 9. Pulmonary hypertension. Aware. Likely due to a combination of chronic obstructive pulmonary disease and sleep apnea. This is multifactorial. So far, he has a negative balance of 1.9 L. X-ray done yesterday did not show any pulmonary edema. cc: Zachariah Tracy MD
[2018-12-17] MEDS: DOXYCYCLINE 100 MG in NS 250 ML IV SCH (11:44)
[2018-12-17] MEDS: PRAVACHOL PO SCH (21:06)
[2018-12-17] MEDS: FLOMAX PO SCH (21:07)
[2018-12-18] MEDS: DOXYCYCLINE 100 MG in NS 250 ML IV SCH ×2 (00:08→12:10)
[2018-12-18] MEDS: NORCO-7.5 PO PRN (02:04)
[2018-12-18] MEDS: XOPENEX NEB INH SCH ×6 (03:39→22:56)
[2018-12-18] MEDS: ATROVENT NEB INH SCH ×6 (03:39→22:56)
[2018-12-18 05:21] LABS: BLOOD TYPE ARTERIAL; SAMPLE BLOOD
[2018-12-18 05:22] LABS: ALLEN TEST YES; HCO3-(ACT) 24.9 mmoll (20.0-26.0); METHB 1.1 % (0.0-1.5); MODALITY VENTIMASK; O2(CT) 20.8 mL/dL (15.0-23.0); O2HB 96.6 % (95.0-99.0); PCO2(98.6) 51 mmHg (35-45); PO2(98.6) 129 mmHg (60-100); SAO2 98.4 % (95.0-100.0); THB 15.2 g/dL (11.5-17.4); pH(98.6) 7.33 (7.35-7.45)
[2018-12-18 05:54] LABS: HEMATOCRIT 45.5 % (42.0-52.0); HEMOGLOBIN 14.8 g/dL (14.0-18.0); IMM GRAN# 0.02 X1000 (0.0-0.04); IMM GRAN% 0.2 % (0.0-0.5); LYMPH# 0.54 X1000 (1.2-3.4); LYMPH% 4.2 % (20.5-51.1); MCH 28.8 PG (27-31); MCHC 32.5 g/dL (33-37); MCV 88.7 FL (81-99); MONO# 1.07 X1000 (0.11-0.59); MONO% 8.3 % (1.7-9.3); MPV 10.9 FL (7.4-10.4); NEUT# 11.25 X1000 (1.4-6.5); NEUT% 87.3 % (42.2-75.2); PLT 217 X1000 (130-400); RBC 5.13 XMIL (4.7-6.1); RDW 14.6 % (11.5-14.5); WBC 12.88 X1000 (4.8-10.8)
[2018-12-18] MEDS: HUMULIN R SUBQ SCH ×4 (06:00→22:15)
[2018-12-18] MEDS: SOLU-MEDROL IV SCH ×3 (06:00→21:17)
[2018-12-18 06:19] LABS: AGAP 10; ALB/GLOB RATIO 1.3; ALBUMIN 3.4 g/dL (3.5-5.0); ALKALINE PHOSPHATASE 37 U/L (32-122); BUN 32 mg/dL (8-22); CALCIUM 8.9 mg/dL (8.8-10.2); CHLORIDE 105 mmol/L (98-107); COSMO 296; ESTIMATED GFR > 60; GLUCOSE 267 mg/dL (70-104); GOT 11 U/L (10-34); GPT 16 U/L (10-44); SODIUM 140 mmol/L (136-145); TCO2 25 mmol/L (25-35); TOTAL BILIRUBIN 0.31 mg/dL (0.20-1.00); TOTAL PROTEIN 6.1 g/dL (6.3-8.3)
--- NOTE | 2018-12-18 07:03 | Diag Imaging Result Doc PS360 ---
EXAM: CHEST-PORTABLE 12/18/2018 HISTORY: dyspnea TECHNIQUE: AP portable at 0555 COMMENT: There is cardiomegaly and increased pulmonary vascularity. The inspiration is less optimal than on 12/16/2018. IMPRESSION: Poor inspiration. Stable chest. Electronically signed by jL Goddard 12/18/2018 7:01 AM
[2018-12-18] MEDS: PULMICORT INH SCH ×2 (07:39→19:42)
[2018-12-18] MEDS: LOFIBRA PO SCH (09:15)
[2018-12-18] MEDS: DIOVAN PO SCH (09:15)
[2018-12-18] MEDS: MOBIC PO SCH ×2 (09:15→21:17)
[2018-12-18] MEDS: AMARYL PO SCH ×2 (09:15→21:17)
[2018-12-18] MEDS: TOPROL XL PO SCH (09:15)
[2018-12-18] MEDS: TAMBOCOR PO SCH ×2 (09:16→22:14)
[2018-12-18] MEDS: ISOPTIN SR PO SCH ×2 (09:16→21:17)
[2018-12-18] MEDS: LANTUS INSULIN SUBQ SCH (09:17)
--- NOTE | 2018-12-18 09:21 | PROGRESS NOTE ---
DATE: 12/18/2018 SUBJECTIVE: As per the patient, he had a good night, he tolerated better the CPAP machine. At this moment, he is on a nasal cannula. He is still complaining of some shortness of breath, but compared with admission he feels much better. All their questions were answered. I will transfer this patient to the floor. OBJECTIVE: Vital Signs: Temperature 98.1 degrees, pulse 67, respiratory rate 16, blood pressure 136/92, oxygen saturation 93 on nasal cannula 6 L. HEENT: Head normocephalic, no trauma. PERRLA. Neck: Supple. I cannot see JVD because of her neck size. Central trachea. Chest: Coarse breath sounds bilaterally. He does have bilateral end-expiratory wheezing, which is faint. Decreased breath sounds globally with prolonged expiratory phase, but better compared with yesterday. Cardiovascular: RRR. Abdomen: Soft, obese, slightly distended. Positive bowel sounds. Extremities: No edema, no clubbing, no cyanosis. He does have a right hand deformity since . Neurological examination: The patient is alert and oriented x3. No focal deficits. LABORATORY: WBC 12.8, hemoglobin 14.8, hematocrit 45.5, platelets 217. Sodium 140, potassium 5, chloride 105, bicarbonate 25. BUN 32, creatinine 1, glucose 267, calcium 8.9. AST 11, ALT 16, alkaline phosphatase 37, albumin 3.4. ASSESSMENT AND PLAN: 1. Acute hypoxemic respiratory failure due to chronic obstructive pulmonary disease exacerbation. Continue with breathing treatment. He has been placed on antibiotics, steroids, oxygen supplementation. We will continue with same management. He is feeling much better. 2. Atypical chest pain. No chest pain at this moment. Resolved. 3. Chronic obstructive pulmonary disease exacerbation, as per #1. 4. History of paroxysmal atrial fibrillation. I have placed this patient on Lovenox twice a day. 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 5. Dyslipidemia. Continue with same management. 6. Type 2 diabetes. I have increased the dose of Lantus today. His hemoglobin A1c 7.2. The high blood sugar is likely due to steroids. 7. Hypertension, stable. Continue with same management. 8. Likely sleep apnea. It looks like he was evaluated before for this problem, but a long time ago. He will need to follow up as an outpatient with that. 9. Pulmonary hypertension, aware. Likely due to a combination of chronic obstructive pulmonary disease, sleep apnea. This is multifactorial. So far we have a negative balance of 2.9 liters. We will monitor. cc: Zachariah Tracy MD
[2018-12-18] MEDS: LOVENOX SUBQ SCH ×2 (09:37→21:17)
[2018-12-18] MEDS: FLOMAX PO SCH (21:17)
[2018-12-18] MEDS: PRAVACHOL PO SCH (21:17)
[2018-12-19] MEDS: DOXYCYCLINE 100 MG in NS 250 ML IV SCH ×3 (00:20→23:35)
[2018-12-19] MEDS: NORCO-7.5 PO PRN (00:23)
[2018-12-19] MEDS: ATROVENT NEB INH SCH ×6 (03:25→23:22)
[2018-12-19] MEDS: XOPENEX NEB INH SCH ×6 (03:25→23:22)
[2018-12-19 06:42] LABS: HEMATOCRIT 44.4 % (42.0-52.0); HEMOGLOBIN 14.5 g/dL (14.0-18.0); IMM GRAN# 0.02 X1000 (0.0-0.04); IMM GRAN% 0.2 % (0.0-0.5); LYMPH# 0.44 X1000 (1.2-3.4); LYMPH% 4.7 % (20.5-51.1); MCH 28.8 PG (27-31); MCHC 32.7 g/dL (33-37); MCV 88.1 FL (81-99); MONO# 0.67 X1000 (0.11-0.59); MONO% 7.2 % (1.7-9.3); MPV 10.8 FL (7.4-10.4); NEUT# 8.22 X1000 (1.4-6.5); NEUT% 87.9 % (42.2-75.2); PLT 199 X1000 (130-400); RBC 5.04 XMIL (4.7-6.1); RDW 14.3 % (11.5-14.5); WBC 9.35 X1000 (4.8-10.8)
[2018-12-19] MEDS: SOLU-MEDROL IV SCH ×3 (06:50→21:18)
[2018-12-19] MEDS: HUMULIN R SUBQ SCH ×4 (06:50→21:16)
[2018-12-19 06:59] LABS: AGAP 8; BUN 26 mg/dL (8-22); CALCIUM 8.7 mg/dL (8.8-10.2); CHLORIDE 102 mmol/L (98-107); COSMO 290; CREATININE 0.8 mg/dL (0.7-1.2); ESTIMATED GFR > 60; GLUCOSE 273 mg/dL (70-104); POTASSIUM 4.6 mmol/L (3.5-5.1); SODIUM 138 mmol/L (136-145); TCO2 28 mmol/L (25-35)
[2018-12-19] MEDS: PULMICORT INH SCH ×2 (07:36→19:28)
[2018-12-19 08:16] LABS: BANDS 2 % (0-1); LYMPHS 6 % (21-51); MONO 10 % (1-9); SEGS 80 % (42-75)
[2018-12-19] MEDS: LANTUS INSULIN SUBQ SCH (08:34)
[2018-12-19] MEDS: MOBIC PO SCH ×2 (08:35→21:17)
[2018-12-19] MEDS: LOVENOX SUBQ SCH ×2 (08:35→21:19)
[2018-12-19] MEDS: TOPROL XL PO SCH (08:36)
[2018-12-19] MEDS: LOFIBRA PO SCH (08:36)
[2018-12-19] MEDS: TAMBOCOR PO SCH ×2 (08:36→21:17)
[2018-12-19] MEDS: DIOVAN PO SCH (08:37)
[2018-12-19] MEDS: AMARYL PO SCH ×2 (08:37→21:17)
[2018-12-19] MEDS: ISOPTIN SR PO SCH ×2 (08:37→21:23)
--- NOTE | 2018-12-19 14:25 | PROGRESS NOTE ---
DATE: 12/19/2018 SUBJECTIVE: This patient had a good night. He still complains of shortness of breath but compared with admission and yesterday it is better. Hopefully, he can be discharged in the next 48 hours. Hopefully, tomorrow we will stop the IV steroids and I will put him on p.o. steroids. He is still wheezing a little bit. OBJECTIVE: Vital Signs: Temperature 97.7, pulse 66, respiratory rate 26, blood pressure 179/74, oxygen saturation 99% on 3 L of nasal cannula. HEENT: Head is normocephalic. No trauma. PERRLA. Neck: Supple. No JVD. Central trachea. Chest: Coarse breath sounds bilaterally with some bilateral end-expiratory wheezing, faint. Decreased breath sounds globally with prolonged expiratory phase. Cardiovascular: RRR. Abdomen: Soft and slightly distended. Positive bowel sounds. Protuberant. Extremities: No edema. No clubbing. No cyanosis. He does have a right hand deformity since . Neurological: The patient is alert and oriented times 3. No focal deficit. LABORATORY: WBC is 9.3, hemoglobin 14.5, hematocrit 44.4, and platelets 199. Sodium is 138, potassium 4.6, chloride 102, bicarbonate 28, BUN 26, creatinine 0.8, glucose 273, and calcium 8.7. ASSESSMENT AND PLAN: 1. Acute hypoxemic respiratory failure due to chronic obstructive pulmonary disease exacerbation. Continue breathing treatments. He has been placed on antibiotics, steroids, and oxygen supplementation. We will continue with the same management. He is feeling better. 2. Atypical chest pain. No chest pain at this moment. Resolved. 3. Chronic obstructive pulmonary disease exacerbation. As per #1. 4. History of paroxysmal atrial fibrillation. I have put this patient on Lovenox twice a day. He is not on any anticoagulation at home. He follows with a drapery worker at [facility]. 5. Dyslipidemia. Continue with the same management. 6. Type 2 diabetes. I will continue with the same management. Hemoglobin A1c is 7.2. His blood sugar is elevated likely due to steroids which I will decrease tomorrow. 7. Hypertension. We will continue to monitor. 8. Sleep apnea. He will need to be reevaluated again for the same problem. 9. Pulmonary hypertension. Aware. Likely a combination of chronic obstructive pulmonary disease and sleep apnea. This is multifactorial. So far we will continue with the same management. cc: Zachariah Tracy MD
[2018-12-19] MEDS: PRAVACHOL PO SCH (21:17)
[2018-12-19] MEDS: FLOMAX PO SCH (21:18)
[2018-12-20] MEDS: XOPENEX NEB INH SCH ×6 (03:26→23:25)
[2018-12-20] MEDS: ATROVENT NEB INH SCH ×6 (03:26→23:25)
[2018-12-20] MEDS: HUMULIN R SUBQ SCH ×4 (06:48→21:27)
[2018-12-20 06:49] LABS: AGAP 9; BUN 22 mg/dL (8-22); CALCIUM 9.5 mg/dL (8.8-10.2); CHLORIDE 102 mmol/L (98-107); COSMO 293; CREATININE 0.8 mg/dL (0.7-1.2); ESTIMATED GFR > 60; GLUCOSE 243 mg/dL (70-104); POTASSIUM 4.5 mmol/L (3.5-5.1); SODIUM 141 mmol/L (136-145); TCO2 30 mmol/L (25-35)
[2018-12-20] MEDS: SOLU-MEDROL IV SCH (06:49)
[2018-12-20] MEDS: PULMICORT INH SCH ×2 (07:48→19:24)
[2018-12-20] MEDS: LANTUS INSULIN SUBQ SCH (08:04)
[2018-12-20] MEDS: LOVENOX SUBQ SCH (08:04)
[2018-12-20] MEDS: TOPROL XL PO SCH (08:05)
[2018-12-20] MEDS: ISOPTIN SR PO SCH ×2 (08:05→21:27)
[2018-12-20] MEDS: TAMBOCOR PO SCH ×2 (08:05→21:28)
[2018-12-20] MEDS: DIOVAN PO SCH (08:05)
[2018-12-20] MEDS: AMARYL PO SCH ×2 (08:06→21:28)
[2018-12-20] MEDS: LOFIBRA PO SCH (08:06)
[2018-12-20] MEDS: MOBIC PO SCH ×2 (08:06→21:28)
--- NOTE | 2018-12-20 12:39 | PROGRESS NOTE ---
DATE: 12/20/2018 SUBJECTIVE: This patient is feeling better today. He is still complaining of mild shortness of breath. No wheezing so I will decrease the dose of the IV steroids and hopefully tomorrow will switch it to p.o. I will request also home O2 evaluation tomorrow morning to see if he needs oxygen to go home with. OBJECTIVE: Vital Signs: Temperature 97.7 degrees, pulse 65, respiratory rate 20, blood pressure 165/79, oxygen saturation 95% on 3 L of nasal cannula. HEENT: Head normocephalic, no trauma, PERRLA. Neck: Supple. No JVD. No masses. Central trachea. Chest: Decreased breath sounds bilaterally with prolonged expiratory phase. Some crepitus at the bases. Abdomen: Soft, nontender, nondistended. No hepatosplenomegaly. Extremities: No edema, no clubbing, no cyanosis. He does have right-sided hand deformity since . Neurological: The patient is alert and oriented x3. No focal deficits. LABORATORY: Sodium 141, potassium 4.5, chloride 102, bicarbonate 30, BUN 22, creatinine 0.8, glucose 243, calcium 9.5. ASSESSMENT AND PLAN: 1. Acute hypoxemic respiratory failure due to COPD exacerbation, continue breathing treatment. He has been placed on antibiotics. I will decrease the dose of the steroids. Continue with oxygen supplementation, we will continue with this management. He is feeling better. 2. Atypical chest pain, resolved. 3. COPD exacerbation as per #1. 4. History of paroxysmal atrial fibrillation. I have placed this patient on Lovenox twice a day. He is not on any anticoagulation at home. 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 I will stop the Lovenox and I will start this patient on Eliquis. 5. Type 2 diabetes. Hemoglobin A1c 7.2. His blood sugar is elevated likely due to steroids which I have decreased today. 6. Hypertension. Continue to monitor. 7. Sleep apnea. He will need to be re-evaluated again for this problem as an outpatient. 8. Pulmonary hypertension, aware, likely a combination of COPD, sleep apnea. This is likely multifactorial. cc: Zachariah Tracy MD
[2018-12-20] MEDS: DOXYCYCLINE 100 MG in NS 250 ML IV SCH ×2 (12:51→21:37)
[2018-12-20] MEDS: ELIQUIS PO SCH (21:28)
[2018-12-20] MEDS: PRAVACHOL PO SCH (21:28)
[2018-12-20] MEDS: FLOMAX PO SCH (21:28)
[2018-12-21] MEDS: ATROVENT NEB INH SCH ×3 (03:25→11:47)
[2018-12-21] MEDS: XOPENEX NEB INH SCH ×3 (03:25→11:47)
[2018-12-21] MEDS: HUMULIN R SUBQ SCH (06:47)
[2018-12-21 07:15] LABS: AGAP 9; BUN 22 mg/dL (8-22); CALCIUM 8.6 mg/dL (8.8-10.2); CHLORIDE 104 mmol/L (98-107); COSMO 289; CREATININE 0.7 mg/dL (0.7-1.2); GLUCOSE 108 mg/dL (70-104); POTASSIUM 4.1 mmol/L (3.5-5.1); SODIUM 143 mmol/L (136-145); TCO2 30 mmol/L (25-35)
[2018-12-21] MEDS: PULMICORT INH SCH (07:48)
[2018-12-21] MEDS: AMARYL PO SCH (08:41)
[2018-12-21] MEDS: DIOVAN PO SCH (08:41)
[2018-12-21] MEDS: ELIQUIS PO SCH (08:41)
[2018-12-21] MEDS: TAMBOCOR PO SCH (08:41)
[2018-12-21] MEDS: MOBIC PO SCH (08:42)
[2018-12-21] MEDS: TOPROL XL PO SCH (08:42)
[2018-12-21] MEDS: ISOPTIN SR PO SCH (08:42)
[2018-12-21] MEDS ORDERED: SOLU-MEDROL IV SCH (09:00)
[2018-12-21] MEDS: LOFIBRA PO SCH (09:32)
[2018-12-21] MEDS: LANTUS INSULIN SUBQ SCH (09:36)
[2018-12-21 11:24] VITALS: BP 133/79
--- NOTE | 2018-12-22 06:38 | DISCHARGE SUMMARY ---
ADMISSION DATE: 12/15/2018 DISCHARGE DATE: 12/21/2018 DISCHARGE DIAGNOSES: 1. Acute hypoxemic respiratory failure due to chronic obstructive pulmonary disease exacerbation. 2. Atypical chest pain resolved. 3. Chronic obstructive pulmonary disease exacerbation. 4. History of paroxysmal atrial fibrillation. 5. Type 2 diabetes, hemoglobin A1c 7.2. 6. Hypertension. 7. Sleep apnea. 8. Pulmonary hypertension. PROCEDURES PERFORMED: 1. Chest x-ray dated 12/15/2018. Impression: Negative exam. 2. Echocardiogram dated 12/20/2018. Impression: Ejection fraction 65%. There is a septal flattening demonstrated consistent with right ventricular pressure overload. Doppler suggests grade 1 left ventricular diastolic dysfunction. The right atrium is a little bit enlarged. The right ventricle is mildly to moderately enlarged, but the right ventricular systolic function appears to be preserved, very mild sclerosis of 3 leaflet aortic valve demonstrated. The estimated systolic PA pressure by Doppler is 85 mmHg suggesting severe pulmonary hypertension. 3. Chest x-ray dated 12/16/2018. Impression: No evidence of acute pathology. 4. Chest x-ray dated 12/18/2018. Impression: Poor inspiration, stable chest. HOSPITAL COURSE: A 68-year-old male with a past medical history of COPD, chronic respiratory failure, paroxysmal atrial fibrillation, diastolic dysfunction who presented to the emergency department, and was admitted on 12/15/2018 due to severe shortness of breath. He states that for the last 3 weeks he was progressively getting short of breath and has been worsening on a daily basis. He called his doctor, Dr. Degroot who prescribed him azithromycin and a Medrol Dosepak. Apparently, that was all completed the day before admission but he was unable to sleep because of the shortness of breath and that was causing some chest discomfort. He has been having also some dizziness and lightheadedness for the past 3 weeks. He has had yellow sputum which is thick and some chills. He denied fever. Cardiac enzymes were negative. He has had a clear left heart catheterization in 2017. He had an elevated proBNP at almost 5000. He was actively wheezing and short of breath. He was admitted and he was placed on Lasix, steroids and antibiotics, breathing treatments, and oxygen supplementation. He was monitored in the [facility] unit, and getting all of this treatment altogether. Echocardiogram showed an elevated pulmonary arterial pressure suggesting pulmonary hypertension. Also, this patient likely has sleep apnea. I believe he has been evaluated before by a sleep doctor, and he was diagnosed with sleep apnea at that time, but he is not using a CPAP machine at home. He has a history of paroxysmal atrial fibrillation and even though his CHADS2-VASc score is 2 or more, he is not on anticoagulation but he was placed on blood thinners during this hospitalization. I told the patient to monitor this with his primary care doctor and guest experience representative. The patient has been getting better on a daily basis. He will be discharged today. We measured his oxygen saturation at rest, and also walking, and he dropped to 87 when he was doing physical activity. He has been discharged with oxygen. He will follow up with his knitting machine mechanic in 1 week and also guest experience representative in 1 week. He needs to discuss anticoagulation like I mentioned before. Also, follow up with his primary care doctor. He will need to call for an appointment. At the moment of discharge, this patient was in a stable medical condition tolerating p.o. and ambulating. His is at the bedside as well. DISCHARGE EXAMINATION: Vital Signs: Temperature 97.9 degrees, pulse 66, respiratory rate 16, blood pressure 133/79, and oxygen saturation 95 percent on 2 L of nasal cannula. HEENT: Head normocephalic. No trauma. PERRLA. Neck: Supple. No JVD. No masses. Central trachea. Chest: Decreased breath sounds bilaterally with prolonged expiratory phase. No wheezing today. Abdomen: Soft, nontender, and nondistended. No hepatosplenomegaly. Extremities: No edema, no clubbing, no cyanosis. He has a right-sided hand deformity since . Neurologic: The patient is alert and oriented x3. No focal deficits. LABORATORY: Sodium 143, potassium 4.1, chloride 104, bicarbonate 30, BUN 22, creatinine 0.7, glucose 108, and calcium 8.6. DISCHARGE MEDICATIONS: 1. Acetaminophen 650 mg p.o. q.6 hours as needed. 2. Albuterol sulfate inhaler 2 puff inhaler q.6 hours as needed for shortness of breath. 3. Eliquis 5 mg p.o. b.i.d. 4. Doxycycline 100 mg p.o. b.i.d. 5. Fenofibrate 160 mg p.o. daily. 6. Flecainide acetate 50 mg p.o. b.i.d. 7. Fluticasone/Breo Ellipta 200/25 mcg inhaler 1 inhalation daily, 8. [*] 2 tablets p.o. b.i.d. 9. Chancellor 7.5 one tablet p.o. q.8 hours as needed for pain. 10. Levothyroxine 75 mcg p.o. daily. 11. Meloxicam 7.5 mg p.o. b.i.d. 12. Metformin 1 tablet p.o. b.i.d. 13. Medrol Dosepak as directed 1 package. 14. Metoprolol succinate 1 tablet p.o. b.i.d. 100 mg. 15. Pravastatin 40 mg p.o. at bedtime. 16. Tamsulosin 0.4 mg p.o. at bedtime. 17. Spiriva Respimat 4 g inhaled as needed. 18. Valsartan hydrochlorothiazide 1 tablet p.o. daily 320/12.5 mg tablet. 19. Verapamil ER 120 mg p.o. b.i.d. TIME SPENT: 35 minutes. cc: Zachariah Tracy MD
== END 2018-12-21 14:27 | disposition home or self-care (01) | DRG 189 ==
LOC: SUPCPDRO → ED 05:45 → SUATTDRO 10:28 → EDIPHOLD 10:28 → 3S 12:16 → 4N 12-18 17:17
PROVIDERS: ATTEND Internal Medicine
CPT/HCPCS: 71010; 71020; 71045; 71046; 80048; 80053; 80061; 81001; 82550; 82805; 82948; 83036; 83605; 83721; 83735; 83880; 84439; 84443; 84484; 85025; 85610; 85730; 87040; 87070; 87077; 87088; 87186; 87205; 93005; 93010; 93306; 94640; 94660; 94760; 94761; 94799; 96365; 96367; 96375; 99285; A9270; J1650; J1815; J1940; J1956; J2920; J2930; J7050; XXXXX

== ENCOUNTER 2019-03-07 13:24 | Observation (INO) ==
[2019-03-07] MEDS ORDERED: DUONEB (A & A) INH ONE (14:01)
--- NOTE | 2019-03-07 14:11 | ED EKG INTERP ---
This chart was entered by Maria De Jesus Garcia Scribe, acting as scribe for Ben Altamirano MD. EKG Interpretation - EKG Time of EKG reading by physician:: 13:36 EKG Read and Signed by:: Ben Altamirano EKG Interpretation (*Must complete 3 of following elements*): Abnormal Rate: 85 Rhythm: NSR [place]: normal QRS: other (possible inferior infarct) HI Interval: normal ST Wave: normal Attestation - Physician/ ALBERTO Attestation Patient care was provided by Advanced Practice Provider:: No The physician spent face to face time with patient:: Yes Advanced Practice Provider documentation review:: Supervising physician onsite and consulted in the evaluation and care of this patient. The physician did have a face to face encounter with the patient. This chart was documented by the indicated scribe, (Maria De Jesus Garcia Scribe) and accurately reflects the services I performed and decisions made by me, Ben Altamirano MD, as attested by the provider's signature.
[2019-03-07 14:15] LABS: BASO# 0.01 X1000 (0.0-0.2); BASO% 0.2 % (0.0-0.8); EOS# 0.04 X1000 (0.0-0.7); EOS% 0.9 % (0.0-10.0); HEMATOCRIT 44.2 % (42.0-52.0); HEMOGLOBIN 14.9 g/dL (14.0-18.0); LYMPH# 0.44 X1000 (1.2-3.4); LYMPH% 9.6 % (20.5-51.1); MCH 29.2 PG (27-31); MCHC 33.7 g/dL (33-37); MCV 86.7 FL (81-99); MONO# 0.65 X1000 (0.11-0.59); MONO% 14.3 % (1.7-9.3); MPV 10.5 FL (7.4-10.4); NEUT# 3.42 X1000 (1.4-6.5); PLT 198 X1000 (130-400); RDW 14.5 % (11.5-14.5); WBC 4.56 X1000 (4.8-10.8)
--- NOTE | 2019-03-07 14:19 | PROVIDER DOCUMENTATION ---
HPI-General Adult - General Chief Complaint: Shortness of Breath Stated Complaint: SOB PAIN NEAR RIGHT SHOULDER VERY WEAK Time Seen by Provider: 03/07/19 14:00 Source: patient, family Allergies/Adverse Reactions: Patient Allergies Allergy/AdvReac Type Severity Reaction Status Date / Time diclofenac [From Arthrotec] Allergy Unknown Verified 03/05/19 17:26 misoprostol [From Arthrotec] Allergy Unknown Verified 03/05/19 17:26 Penicillins Allergy ANAPHYLAXIS Verified 03/05/19 17:26 Home Medications: Home Medication List Medication Instructions Recorded Confirmed Last Taken Type Fenofibrate 160 mg PO DAILY 12/23/16 03/07/19 12/14/18 07:00 History Fluticasone/Vilanterol [Breo 1 each IH DAILY 12/23/16 03/07/19 12/14/18 07:00 History Ellipta 200-25 Mcg INH] Glimepiride 2 tab PO BID 12/23/16 03/07/19 12/14/18 20:00 History Levothyroxine [Synthroid] 75 microgm PO DAILY 12/23/16 03/07/19 12/14/18 07:00 History Metoprolol Succinate E.r. [Toprol 1 tab PO BID 12/23/16 03/07/19 12/14/18 20:00 History Xl] PRAVAstatin [Pravachol] 40 mg PO QHS 12/23/16 03/07/19 12/14/18 20:00 History Tiotropium [place] [Spiriva 4 gm IH PRN PRN 12/23/16 03/07/19 12/14/18 20:00 History Respimat] Flecainide Acetate 50 mg PO BID 12/15/18 03/07/19 12/14/18 20:00 History Verapamil HCl [Verapamil ER] 120 mg PO BID 12/15/18 03/07/19 12/14/18 20:00 History Acetaminophen [Tylenol] 650 mg PO Q6H PRN PRN tab 12/21/18 03/07/19 Unknown Rx Albuterol Sulfate Inhaler 2 puff INH Q6H PRN PRN #1 inhaler 12/21/18 03/07/19 Unknown Rx [Ventolin Hfa] Apixaban [Eliquis] 5 mg PO BID #60 tab 12/21/18 03/07/19 Unknown Rx Doxycycline 100 mg PO BID #6 tab 12/21/18 03/07/19 Unknown Rx Hydrocodone/Acetaminophen [[place] 1 tab PO Q8H PRN 03/05/19 03/07/19 Unknown History 5-325 Tablet] Methylprednisolone [Medrol Dosepak] 4 mg PO DIRECTED #1 pkg 03/05/19 03/07/19 Unknown Rx - History of Present Illness -Gen Adult Nature of Presenting Problems: This is a 68yo male with PMH of CHF, COPD, and diabetes. The patient presents with chest pain and shortness of breath which have been ongoing the past 2 days. Location of Pain/Injury: reports: chest, other (shoulder) Pain Radiation: reports: shoulder(s) (right) Quality of Pain: reports: sharp Onset/Duration: reports: 2 days ago Timing: reports: still present Modifying Factors: improves with: breathing Associated Symptoms: reports: cough, fever/chills Recently seen or treated by another doctor?: Yes (Recent ER) Review of Systems - Adult - REVIEW OF SYSTEMS - ADULT Constitutional: reports: fever (100.9) Eyes: reports: no symptoms reported Ears, Nose, Mouth & Throat: reports: no symptoms reported Cardiovascular: reports: chest pain. denies: edema Respiratory: reports: cough, shortness of breath Gastrointestinal: reports: no symptoms reported. denies: abdominal pain Genitourinary: reports: no symptoms reported Musculoskeletal: reports: no symptoms reported. denies: back pain Integumentary: reports: no symptoms reported Neurological: reports: no symptoms reported. denies: headache/migraines Psychiatric: reports: no symptoms reported Endocrine: reports: no symptoms reported Hematologic/Lymphatic: reports: no symptoms reported, other (no bleeding) Allergic/Immunologic: reports: no symptoms reported Past History - Adult - PAST MEDICAL HISTORY-ADULT Review of Records: reports: Old Records Reviewed Cardiovascular: reports: A-Fib (possible), HTN Respiratory: reports: asthma Endocrine/Immune: reports: Diabetes, Lymphoma (non-hodgkins), thyroid disorder Other Conditions: reports: other cancer (skin) - PRIOR SURGERIES/PROCEDURES Surgical/Procedure History: reports: cholecystectomy, tonsillectomy, orthopedic (extremity), joint replacement - IMMUNIZATION STATUS Childhood Immunizations: See Nurse Assessment Flu Vaccine: See Nurse Assessment - FAMILY HISTORY Family History: reviewed, not pertinent Physical Exam-General - CONSTITUTIONAL General Appearance: mild distress, obese - EYES Eyes: negative: scleral icterus - HEAD, EARS, NOSE, MOUTH & THROAT HENMT: normocephalic/atraumatic, moist mucous membranes - RESPIRATORY Respiratory: decreased breath sounds (decreased breathsounds bilaterally.), crackles (crackles noted in the left lung knight), other (increased work of breathing.) - CARDIOVASCULAR Cardiovascular: regular rate, rhythm, other (trace edema in the LE) - GASTROINTESTINAL (ABDOMEN) Abdominal Exam: non tender, distended. negative: guarding - SKIN Integumentary: normal color, warm/dry - NEUROLOGIC Neurologic: grossly normal - PSYCHIATRIC Psych/Mental Status: normal mood/affect Progress - PLAN OF CARE/RESULTS Progress/Plan/Lab Results: Vital Signs - 8 hr 03/07/19 13:27 Temperature 98.2 F Pulse Rate 85 Respiratory Rate 22 Blood Pressure 176/64 O2 Sat by Pulse Oximetry 94 L Laboratory Results - last 24 hr 03/07/19 13:58 WBC 4.56 L RBC 5.10 Hgb 14.9 Hct 44.2 MCV 86.7 MCH 29.2 MCHC 33.7 RDW Std Deviation 14.5 Plt Count 198 MPV 10.5 H Immature Gran % (Auto) 0.0 Neut % (Auto) 75.0 Lymph % (Auto) 9.6 L Love % (Auto) 14.3 H Eos % (Auto) 0.9 Baso % (Auto) 0.2 Immature Gran # (Auto) 0.00 Neut # (Auto) 3.42 Lymph # (Auto) 0.44 L Love # (Auto) 0.65 H Eos # (Auto) 0.04 Baso # (Auto) 0.01 Orders Category Date Time Status Cardiac Monitoring DIRECTED Care 03/07/19 13:46 Active Oxygen Therapy- ED Nursing DIRECTED Care 03/07/19 13:46 Active Saline Loc NOW Care 03/07/19 13:46 Active CHEST-2 VIEWS [RAD] Stat Exams 03/07/19 13:46 Ordered CBC WITH ELECTRONIC DIFF [HEME] Stat Lab 03/07/19 13:58 Completed CK PROFILE [SP CHEM] Stat Lab 03/07/19 13:58 Received COMPREHENSIVE METABOLIC PANEL [CHEM] Stat Lab 03/07/19 13:58 Received PRO B-NATRIURETIC PEPTIDE Stat Lab 03/07/19 13:58 Received PROTIME WITH INR [COAG] Stat Lab 03/07/19 13:58 Received PTT [COAG] Stat Lab 03/07/19 13:58 Received TROPONIN T Stat Lab 03/07/19 13:58 Received Albuterol 2.5MG/Ipratrop 0.5MG [Duoneb (A & A)] Med 03/07/19 14:01 Discontinued 3 ml INH NOW ONE Aerosol Treatments Routine Oth 03/07/19 14:01 Active Aerosol Treatments Stat Oth 03/07/19 14:01 Active CP/SOB/Palp >45 yrs of Age Stat Oth 03/07/19 13:45 Ordered EKG [EKG] Stat Ther 03/07/19 13:46 Ordered Result Diagrams: 03/07/19 13:58 03/07/19 13:58 - REASSESSMENT Reassessment #1 Status: unchanged (Patient did recieve breathing treatment, but continues on 3.5L O2 with some persistant chest and shoulder pain. Given Heart Score of 5 as well as noted elevated Lactate will admit to the hospitalist team. Discussed with hospitalist team who has accepted the patient.) Departure - Departure Date of Disposition Decision: 03/07/19 Time of Disposition Decision: 15:52 DIAGNOSIS: Hypoxia Chest pain Qualifiers: Chest pain type: chest pain on breathing Qualified Code(s): R07.1 - Chest pain on breathing Disposition: ADMITTED INPATIENT 09 Certified Medical Emergency: Emergent Condition: Serious Referrals and Follow-Ups: Jodie Carrion MD [Primary Care Provider] - - Critical Care Note This patient required my direct & personal management of CC.: No Attestation - Physician/ ALBERTO Attestation Patient care was provided by Advanced Practice Provider:: No The physician spent face to face time with patient:: Yes Advanced Practice Provider documentation review:: Supervising physician onsite and consulted in the evaluation and care of this patient. The physician did have a face to face encounter with the patient.
[2019-03-07 14:23] LABS: INR 1.16
[2019-03-07 14:24] LABS: PTT 33.8 Seconds (22.3-41.8)
[2019-03-07 14:43] LABS: AGAP 15; ALB/GLOB RATIO 1.8; ALBUMIN 4.4 g/dL (3.5-5.0); ALKALINE PHOSPHATASE 41 U/L (32-122); BUN 28 mg/dL (8-22); CALCIUM 9.5 mg/dL (8.8-10.2); CHLORIDE 95 mmol/L (98-107); COSMO 287; CREATININE 1.1 mg/dL (0.7-1.2); ESTIMATED GFR > 60; GLUCOSE 299 mg/dL (70-104); GOT 51 U/L (10-34); GPT 43 U/L (10-44); POTASSIUM 4.2 mmol/L (3.5-5.1); SODIUM 135 mmol/L (136-145); TCO2 25 mmol/L (25-35); TOTAL BILIRUBIN 0.35 mg/dL (0.20-1.00); TOTAL PROTEIN 6.8 g/dL (6.3-8.3)
[2019-03-07 14:48] LABS: CK PROFILE 273 U/L (24-204)
[2019-03-07 14:57] LABS: ALLEN TEST YES; BE 1.2 mmoll (-3.0-3.0); BLOOD TYPE ARTERIAL; HCO3-(ACT) 25.8 mmoll (20.0-26.0); METHB 0.8 % (0.0-1.5); O2(CT) 19.9 mL/dL (15.0-23.0); PCO2(98.6) 37 mmHg (35-45); PO2(98.6) 94 mmHg (60-100); SAMPLE BLOOD; SAO2 97.7 % (95.0-100.0); THB 14.7 g/dL (11.5-17.4); pH(98.6) 7.44 (7.35-7.45)
--- NOTE | 2019-03-07 14:57 | Diag Imaging Result Doc PS360 ---
EXAM: CHEST-2 VIEWS 03/07/2019 HISTORY: chest pain TECHNIQUE: PA and lateral chest COMMENT: There is no evidence of acute cardiac or pulmonary disease. Compared to 03/05/2019 there has been no appreciable change. IMPRESSION: Stable chest. Electronically signed by Lj Goddard 03/07/2019 2:55 PM
[2019-03-07 14:58] LABS: MODALITY CANNULA
[2019-03-07 15:10] LABS: CK INDEX 0.5 (0.0-2.5); CK-MB 1.24 ng/mL (0.0-5.0)
[2019-03-07] MEDS ORDERED: MORPHINE IV ONE (15:33)
--- NOTE | 2019-03-07 16:11 | EKG Report ---
Test Performed on : 03/07/2019 1:36:48 PM Test Reason : chest pain Blood Pressure : / mmHG Vent. Rate : 085 BPM Atrial Rate : 085 BPM P-R Int : 140 ms QRS Dur : 086 ms QT Int : 370 ms P-R-T Axes : 052 -07 050 degrees QTc Int : 440 ms Normal sinus rhythm. Possible Inferior infarct (cited on or before 05-MAR-2019) Abnormal ECG When compared with ECG of 05-MAR-2019 17:02, (Unconfirmed) No significant change was found Unconfirmed Result
--- NOTE | 2019-03-07 17:33 | Diag Imaging Result Doc PS360 ---
EXAM: CT ANGIOGRM PULMONARY ARTERIES 03/07/2019 HISTORY: chest pain TECHNIQUE: This exam was performed using automated exposure control, adjustment of mA or kV according to patient size, and/or use of iterative reconstruction technique. COMMENT: The current examination is compared with the previous noncontrast study of 08/19/2016. 3-D MIPS were performed. The aorta is not distended and there is no evidence of dissection. There is no evidence of significant adenopathy. No abnormal fluid collections are present. There has been cholecystectomy. There are some ill-defined opacities in the posterior costophrenic sulci bilaterally which are probably due to dependent atelectasis or fibrosis. A similar appearance was present on the previous study. Otherwise there is no evidence of acute pulmonary disease. There is a total shoulder arthroplasty on the right. There are degenerative disc changes in the lower thoracic spine. No acute bony abnormalities are present. IMPRESSION: No evidence of pulmonary emboli. Electronically signed by Lj Goddard 03/07/2019 5:31 PM
[2019-03-07] MEDS ORDERED: MORPHINE IV PRN (17:48)
[2019-03-07] MEDS ORDERED: DUONEB (A & A) INH PRN (17:48)
[2019-03-07] MEDS ORDERED: TYLENOL PO PRN (17:48)
[2019-03-07] MEDS ORDERED: ZOFRAN IV PRN (17:48)
--- NOTE | 2019-03-07 17:54 | HISTORY AND PHYSICAL ---
PRIMARY CARE PROVIDER: Dr. Jodie Carrion. PRIMARY MACHINE CELL TUBER: Dr. Yudith Ruiz, [facility]. UROLOGIST: Dr. Duggan. CHIEF COMPLAINT: Chest pain with some shortness of breath and right shoulder pain. HISTORY OF PRESENT ILLNESS: Mr. Palacios is a 68-year-old gentleman who carries an extensive past medical history of COPD, diabetes mellitus type 2, obstructive sleep apnea, overactive bladder with BPH, osteoarthritis, right hand defect, paroxysmal atrial fibrillation, diastolic heart dysfunction, non-Hodgkin's lymphoma on his back that is in remission, history of basal cell skin cancer, hyperlipidemia, who reports to the ED with complaint of right-sided chest pain as well as right shoulder and back pain, and shortness of breath. He reported he has had an increase in shortness of breath over 1 week. Earlier in the week he reported some wheezing as well as a temperature of 100.7 degrees earlier in the week and some white sputum production. However, not today. He states he is supposed to undergo a heart stress test on the of this month at [facility]. Workup in the ED, we have 1 set of negative cardiac enzymes. He continues to complain of this right chest pain as well as right shoulder and back pain. He states it is related to a right shoulder replacement that he had, and it never healed right. He remains tachypneic. He was slightly hypoxemic upon arrival and improved with supplemental O2. We will do a CTA of the chest to rule out any PE. First set of cardiac enzymes have been negative. We will admit him to the medical telemetry floor and continue cardiac rule-out workup. PAST MEDICAL HISTORY: 1. COPD. 2. Diabetes mellitus type 2. 3. Obstructive sleep apnea, resolved with sinus surgery. No CPAP. 4. Overactive bladder with BPH. 5. Osteoarthritis. 6. Right hand defect. 7. Paroxysmal atrial fibrillation. 8. Diastolic dysfunction. 9. Pulmonary hypertension. EF of 65%. 10. Non-Hodgkin's lymphoma on the back that is in remission. 11. History of basal cell skin cancer. 12. Hyperlipidemia. SURGICAL HISTORY: 1. Right hernia repair. 2. Cholecystectomy. 3. Carpal tunnel release bilaterally. 4. Right knee arthroscopy. 5. Reconstruction of the right hand. 6. Tonsillectomy with polyps and sinus surgery. 7. Right shoulder replacement. 8. Bilateral cataracts. 9. Umbilical hernia. 10. Left shoulder skin cancer removal. SOCIAL HISTORY: Quit smoking in the 90s. He started smoking at the age of 13 and was a 1-pack- per-day smoker, very minimal alcohol use if at all. No illicit drug use. He lives at home with his . FAMILY HISTORY: Mother had diabetes and breast cancer. Grandmother and great grandmother had breast cancer. Uncle with colon cancer. Father with cardiac issues in his 50s. Uncle and father had alcoholism. An uncle had congestive heart failure. ALLERGIES: 1. Penicillin which causes anaphylaxis. 2. Arthrotec causes dysrhythmia. 3. Diclofenac 4. Misoprostol. HOME MEDICATIONS: 1. Tylenol. 2. Ventolin inhaler. 3. Eliquis. 4. Fenofibrate. 5. Flecainide. 6. Breo Ellipta inhaler. 7. Glimepiride. 8. Basco 5/325. 9. Synthroid. 10. Toprol-XL. 11. Pravachol. 12. Spiriva. 13. Verapamil. PHYSICAL EXAMINATION: VITAL SIGNS: Temperature is 98.2 degrees, heart rate 85, respirations 20, blood pressure 176/64, O2 saturation 96% on 3 L nasal cannula. GENERAL: Mr. Palacios is a pleasant, 68-year-old male who is sitting up in the bed, grimacing in pain, somewhat short of breath but in no acute distress. HEENT: Atraumatic, normocephalic. PERRL. NECK: Supple. Trachea midline. CARDIOVASCULAR: S1, S2 appreciated. No murmurs, gallops, rubs noted. RESPIRATORY: Lung sounds clear bilaterally. Bilaterally decreased in the bases. GI: Obese, soft, nontender, nondistended. Positive bowel sounds in 4 quadrants. EXTREMITIES: Lower extremities are negative for edema. He does have a right upper extremity deformity noted. NEUROLOGIC: He is awake, alert, and oriented x4. Follows commands. Moves all extremities. No focal deficits noted. SKIN: Warm, dry, and intact. DIAGNOSTIC DATA: 1. Currently pending a CTA of the chest. Chest x-ray is stable. No evidence of acute cardiac or pulmonary disease. 2. EKG shows normal sinus rhythm at 85 beats per minute. LABORATORY DATA: White count 4, hemoglobin and hematocrit is 14 and 44, platelet count is 198,000. Sodium is 135, potassium 4.2, BUN 28, creatinine 1.1, blood glucose is 299. AST 51, CK 273. Troponin less than 0.010, proBNP 187. ASSESSMENT AND PLAN: 1. Atypical chest pain on the right side. We will do a cardiac workup given his extensive cardiac history. First set of troponins have been negative. We will trend 2 more sets. Continue with his home Eliquis and home medication. 2. Chronic obstructive pulmonary disease. He does not appear to be in exacerbation. There are no wheezes, but we will continue with bronchodilators and aggressive pulmonary toilet. 3. Tachypnea. The patient does appear to be in pain. We will make sure that he gets his dose of pain medication now. We will rule him out for PE with a CTA of the chest. 4. Mild hypoxemia upon arrival, improved with supplemental O2. 5. Diastolic heart failure history without exacerbation. His proBNP is normal. We will continue his home medications. 6. Diabetes mellitus type 2, uncontrolled. Hemoglobin A1c is 72 with hyperglycemia. We will continue his home glimepiride. Put him on sliding scale and pattern blood sugars. 7. Right hand defect. 8. Paroxysmal atrial fibrillation. Continue his beta blockers and flecainide as well as Eliquis. 9. Hyperlipidemia. Continue statin. 10. Further recommendation to follow physician evaluation and laboratory and diagnostic data. Dictated by GARRY Renee for Sam Roa MD cc: MD Jodie Guillaume MD Shi-Chi Cheng, MD
[2019-03-07] MEDS: DUONEB (A & A) INH SCH ×3 (18:06→23:12)
[2019-03-07 19:44] LABS: CK INDEX 0.3 (0.0-2.5); CK-MB 1.18 ng/mL (0.0-5.0)
[2019-03-07] MEDS ORDERED: PRAVACHOL PO SCH (21:00)
[2019-03-07] MEDS: NORCO-5 PO PRN (21:25)
[2019-03-07] MEDS: TOPROL XL PO SCH (21:26)
[2019-03-07] MEDS: ELIQUIS PO SCH (21:26)
[2019-03-07] MEDS: ISOPTIN SR PO SCH (21:26)
[2019-03-07] MEDS: TAMBOCOR PO SCH (21:27)
[2019-03-07] MEDS: HUMALOG SUBQ SCH (21:44)
[2019-03-08] MEDS: DUONEB (A & A) INH SCH ×4 (03:18→15:54)
[2019-03-08 03:28] LABS: CK INDEX 0.3 (0.0-2.5); CK-MB 1.36 ng/mL (0.0-5.0)
[2019-03-08] MEDS: NORCO-5 PO PRN ×2 (05:08→14:04)
[2019-03-08 06:33] LABS: AGAP 16; ALB/GLOB RATIO 1.2; ALBUMIN 3.6 g/dL (3.5-5.0); ALKALINE PHOSPHATASE 39 U/L (32-122); BUN 27 mg/dL (8-22); CALCIUM 9.1 mg/dL (8.8-10.2); CHLORIDE 97 mmol/L (98-107); COSMO 289; ESTIMATED GFR > 60; GLUCOSE 245 mg/dL (70-104); GOT 49 U/L (10-34); GPT 39 U/L (10-44); POTASSIUM 3.7 mmol/L (3.5-5.1); SODIUM 138 mmol/L (136-145); TCO2 25 mmol/L (25-35); TOTAL BILIRUBIN 0.36 mg/dL (0.20-1.00); TOTAL PROTEIN 6.6 g/dL (6.3-8.3)
[2019-03-08] MEDS: HUMALOG SUBQ SCH ×3 (06:41→17:30)
[2019-03-08 06:56] LABS: BASO# 0.01 X1000 (0.0-0.2); BASO% 0.3 % (0.0-0.8); EOS# 0.09 X1000 (0.0-0.7); HEMATOCRIT 43.3 % (42.0-52.0); HEMOGLOBIN 14.2 g/dL (14.0-18.0); LYMPH# 0.62 X1000 (1.2-3.4); LYMPH% 20.5 % (20.5-51.1); MCH 28.7 PG (27-31); MCHC 32.8 g/dL (33-37); MCV 87.5 FL (81-99); MONO# 0.58 X1000 (0.11-0.59); MONO% 19.2 % (1.7-9.3); MPV 11.1 FL (7.4-10.4); NEUT# 1.72 X1000 (1.4-6.5); PLT 165 X1000 (130-400); RBC 4.95 XMIL (4.7-6.1); RDW 14.5 % (11.5-14.5); WBC 3.02 X1000 (4.8-10.8)
[2019-03-08] MEDS ORDERED: PRILOSEC PO SCH (07:00)
[2019-03-08] MEDS ORDERED: AMARYL PO SCH (08:00)
[2019-03-08] MEDS ORDERED: LEXISCAN ONE (08:43)
[2019-03-08] MEDS ORDERED: SYNTHROID PO SCH (09:00)
[2019-03-08] MEDS ORDERED: LOFIBRA PO SCH (09:00)
--- NOTE | 2019-03-08 10:39 | Diag Imaging Result Doc PS360 ---
EXAM: CHEST-2 VIEWS HISTORY: Chest Pain TECHNIQUE: Chest two views COMPARISON: 03/07/2019 FINDINGS: The lungs are well expanded. The heart is not enlarged. The vessels are not distended. There are no infiltrates. No pleural effusions. IMPRESSION: No acute abnormality. Electronically signed by Cole Villareal 03/08/2019 10:37 AM
[2019-03-08 10:58] VITALS: BP 135/59
[2019-03-08] MEDS: TAMBOCOR PO SCH (11:00)
[2019-03-08] MEDS: ELIQUIS PO SCH (11:00)
[2019-03-08] MEDS ORDERED: ZITHROMAX PO ONE (11:44)
--- NOTE | 2019-03-08 12:26 | PROGRESS NOTE ---
DATE: 03/08/2019 SUBJECTIVE: This morning, Mr. Palacios refers to be doing a lot better. He said he did have some mild chest discomfort, especially on the right side. This usually comes when he coughs. OBJECTIVE: Current Vital Signs: Blood pressure is 134/59, pulse of 80, respirations are 18, temperature is 98.0 degrees. General Examination: Mr. Palacios is a 68-year-old, gentleman. He is in bed. No distress. HEENT: Mucosa is pink and moist. Anicteric. Acyanotic. Neck: Supple. Chest: Good air entry bilaterally. There some wheezing posteriorly. No crackles. Cardiovascular: Regular rate and rhythm. Abdomen: Soft. Extremities: No pedal edema. REGIONAL SAFETY MANAGER: The patient is awake, alert, and oriented. 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 Laboratory Data: WBC 3.02, hemoglobin is 14.2, platelet count of 165,000. Chemistry is also reviewed and unremarkable. A CTA of the chest yesterday showed no pulmonary emboli. A chest x- ray this morning showed no acute pathology. ASSESSMENT: 1. Atypical chest pain. We think this is probably related to excessive cough from chronic obstructive pulmonary disease. 2. Chronic obstructive pulmonary disease, in mild exacerbation. 3. Acute hypoxemia on presentation. The patient continues to be on supplemental oxygen. CTA was unremarkable for any pulmonary embolism. 4. Diabetes mellitus. We will continue with insulin regimen. 5. History of paroxysmal atrial fibrillation. The patient is on beta blockers, flecainide, and Eliquis. PLAN: In general, I think Mr. Palacios is doing a lot better. He still has some chest discomfort in the left side. As I said, he said it is mostly after he coughs. He underwent a stress test. We are pending the report. If that comes back negative, I think Mr. Palacios will be okay to be discharged. CTA and the repeat chest x-ray have all been unremarkable for any consolidation or any PE. cc: Sam Roa MD
--- NOTE | 2019-03-08 13:12 | Diag Imaging Result Document ---
PROCEDURE NAME: MYOCARDIAL PERF SCAN, STR/REST - 03/08/2019 PROCEDURE PERFORMED: Lexiscan Cardiolite stress test. DESCRIPTION OF PROCEDURE: Lexiscan was infused per standard protocol. There was no chest pain. Stress electrocardiogram was negative for ischemia. Following Lexiscan infusion, Cardiolite was injected. There were 15.6 mCi of Cardiolite injected for the rest phase and 45.8 mCi of Cardiolite injected for the stress phase. Images revealed significant chest wall and diaphragmatic attenuation. Normal left ventricular cavity size. There is a low-grade, fixed defect in the base of the inferior wall suggestive of attenuation defect. There is no evidence of ischemia. Left ventricular ejection fraction was 69%. CONCLUSIONS: 1. No chest pain. 2. Negative Lexiscan stress electrocardiogram. 3. Myocardial perfusion images revealed no evidence of ischemia. 4. There is a low-grade, fixed defect in the base of the inferior wall suggestive of attenuation defect. Left ventricular ejection fraction was 69%. cc: Sammy Hale MD
[2019-03-08] MEDS: ISOPTIN SR PO SCH (17:30)
[2019-03-08] MEDS: TOPROL XL PO SCH (17:31)
[2019-03-09] MEDS ORDERED: ZITHROMAX PO SCH (09:00)
--- NOTE | 2019-03-09 09:50 | DISCHARGE SUMMARY ---
ADMISSION DATE: 03/07/2019 DISCHARGE DATE: 03/08/2019 DISPOSITION: Home with hospice. FOLLOWUP: With Dr. Carrion. CONSULTATIONS DURING THIS ADMISSION: None. IMAGING STUDIES OF SIGNIFICANCE: 1. A chest x-ray shows stable lungs. 2. A CTA showed no evidence of pulmonary emboli. 3. A myocardial perfusion scan showed an ejection fraction of 69% with no evidence of ischemia. ADMISSION DIAGNOSES: 1. Atypical chest pain. 2. Chronic obstructive pulmonary disease. 3. Mild hypoxemia. 4. Right hand defect. DIAGNOSES AT THE TIME OF DISCHARGE: 1. Atypical chest pain with unremarkable cardiac workup, presumably noncardiac. 2. Acute hypoxemic respiratory failure on presentation, improved. 3. Chronic obstructive pulmonary disease with mild exacerbation. 4. Diabetes mellitus. 5. History of paroxysmal atrial fibrillation. 6. Right hand defect. 7. Dyslipidemia. DISCHARGE MEDICATIONS: 1. Levothyroxine 75 mcg p.o. daily. 2. Metoprolol 100 mg b.i.d. 3. Pravastatin 40 mg p.o. at bedtime. 4. Glimepiride 4 mg b.i.d. 5. Breo Ellipta. 6. Fenofibrate 160 mg p.o. daily. 7. Spiriva Respimat 4 g inhaler p.r.n. 8. Flecainide 50 mg b.i.d. 9. Apixaban 5 mg b.i.d. 10. Doxycycline 100 mg b.i.d. 11. Prednisone Medrol Dosepak. 12. Insulin Lantus 52 units subcutaneous at bedtime. 13. Lasix. 14. Azithromycin 250 p.o. daily for 5 days. PRESENTING COMPLAINT: Chest pain, shortness of breath. HISTORY OF PRESENTING COMPLAINT: Mr. Palacios is a 68-year-old, male with multiple comorbidities including COPD, obstructive sleep apnea, atrial fibrillation, a history of non- Hodgkin's lymphoma (in remission), who came to the emergency department because of chest pain and shortness of breath. Upon presenting, he was also found to be mildly febrile and slightly hypoxemic. Upon presentation, he was evaluated and admitted for further medical care. HOSPITAL COURSE: Mr. Palacios was admitted to the medical floor. He was found to be slightly in bronchospasms. He was treated for COPD exacerbation, which improved. His chest pain also got better. He was evaluated with troponin 3 times, which were completely negative. EKG did not show any acute changes. A stress test was normal. At this point, we think Mr. Palacios's chest pain is probably noncardiac and that once his COPD exacerbation gets better, we think the pain will also subside. This morning, he feels a lot better. We think he is stable for discharge. He is not in any more pain. His vitals have been reviewed. Blood pressure is 134/59, pulse of 83, respirations are 16, temperature is 98.5 degrees. Mr. Palacios is in stable condition for discharge. All the discharge instructions have been discussed with him. was also at the bedside at the time of the encounter. Time spent for discharge is 36 minutes. cc: MD Jodie Guillaume MD
== END 2019-03-08 17:48 | disposition hospice, home (50) ==
LOC: ED 13:24 → 1N 13:24
PROVIDERS: ATTEND Internal Medicine